=== PATIENT | female | born 1940 | race Caucasian/White ===

== ENCOUNTER 2023-02-01 20:12 | Inpatient (IN) | payer MEDICARE, MEDICAID, SELFPAY ==
--- NOTE | ~2023-02-01 | XR_ITS ---
EXAMINATION: XR CHEST CLINICAL INFORMATION: Shortness of breath COMPARISON: None available. TECHNIQUE: Frontal view of the chest was obtained. FINDINGS: The cardiac silhouette does not appear enlarged. The thoracic aorta is calcified. There is fullness of the right pulmonary hilum. There is subsegmental atelectasis at the lung bases. The lungs are otherwise clear. No pleural effusion or pneumothorax. Degenerative changes of the spine and shoulders. XR/XR chest 1V IMPRESSION: Subsegmental atelectasis at the lung bases. Prominent right pulmonary hilum.
--- NOTE | 2023-02-01 20:22 | ECG_ITS ---
Test Reason : CHEST PAIN Blood Pressure : / mmHG Vent. Rate : 086 BPM Atrial Rate : 088 BPM P-R Int : 000 ms QRS Dur : 090 ms QT Int : 404 ms P-R-T Axes : 000 -17 087 degrees QTc Int : 483 ms Undetermined rhythm Anteroseptal infarct , age undetermined Abnormal ECG When compared with ECG of 11-JUL-2003 08:08, Current undetermined rhythm precludes rhythm comparison, needs review Anteroseptal infarct is now Present Referred By: Xiomara Mina Electronically Signed By:JAMIE RICHARDSON MD
[2023-02-01 20:24] VITALS: BP 130/94; PULSE 81; PULSE 82; RESP 18; TEMP 36.8; O2SAT 95; O2SAT 97; BMI 32.2
[2023-02-01 21:00] LABS: VBG Base Excess 6.1 mmol/L; VBG HCO3 31 mmol/L (22-26); VBG pCO2 47 mmHg; VBG pH 7.42 (7.32-7.43); VBG pO2 43 mmHg
[2023-02-01 21:03] LABS: Basophils Absolute Auto 0.1 X10*3/uL (0.0-0.2); Basophils Percent Auto 0.9 % (0-2); Eosinophils Absolute Auto 0.2 X10*3/uL (0.0-0.4); Eosinophils Percent Auto 1.9 % (0-4); Hematocrit 33.6 % (37.0-47.0); Hemoglobin 11.2 g/dl (12.0-16.0); Imm Gran Abs Auto 0.06 X10*3/uL (0.00-0.03); Imm Gran Pct Auto 0.5 % (0.0-0.4); Lymphocytes Absolute Auto 2.8 X10*3/uL (1.2-4.9); Lymphocytes Percent Auto 21.8 % (20-40); MANUAL DIFF FLAG SCAN; Mean Corpuscular HGB Conc 33.3 g/dl (31.0-35.0); Mean Corpuscular Hemoglobin 29.2 pg (27.0-33.0); Mean Corpuscular Volume 87.5 fL (80.0-98.0); Mean Platelet Volume 10.2 fL (9.4-12.3); Monocytes Absolute Auto 1.6 X10*3/uL (0.1-1.2); Monocytes Percent Auto 12.1 % (2-11); Neutrophils Absolute Auto 8.1 x10*3/uL (2.0-8.3); Neutrophils Percent Auto 62.8 % (45-73); Platelet Count 264 X10*3/uL (160-400); Red Blood Count 3.84 X10*6/uL (4.20-5.50); Red Cell Distribution Width 12.4 % (11.0-16.0); SCAN SMEAR FLAG 1; White Blood Count 12.8 X10*3/uL (4.8-10.8)
[2023-02-01 21:04] LABS: INTERNATIONAL NORM RATIO 1.6 (0.9-1.1); Prothrombin Time 18.1 SEC (10.0-13.1)
[2023-02-01 21:06] LABS: Venous Blood Gas Refer to POC result
[2023-02-01 21:10] LABS: Alanine Aminotransferase 12 U/L (0-31); Albumin Level 3.8 g/dL (3.5-5.0); Alkaline Phosphatase 97 U/L (39-117); Anion Gap 13 (12-20); Aspartate Amino Transferase 15 U/L (5-31); Bilirubin Total 0.6 mg/dL (0.0-1.0); Blood Urea Nitrogen 6 mg/dL (9-16); Calcium 9.1 mg/dL (8.4-10.2); Carbon Dioxide 25 mmol/L (22-29); Chloride 98 mmol/L (96-108); Creatinine Clr Calc Pharmacy 55.6; Estimated Glomerular Filt Rate > 60; Glucose Random 120 mg/dL (60-115); Potassium 3.8 mmol/L (3.3-5.1); Sodium 132 mmol/L (135-145); Total Protein 7.4 g/dL (6.5-8.0)
[2023-02-01 21:14] LABS: B Type Natriuretic Peptide 224 pg/mL (<100)
[2023-02-01 21:41] LABS: SLIDE REVIEW VERIFIED
--- NOTE | 2023-02-01 21:44 | ED_ITS ---
HPI - SOB/Dyspnea General Chief Complaint: Upper Respiratory Symptoms Stated Complaint: sob, wheezing, per ems Time Seen by Provider: 02/01/23 20:21 Source: patient and EMS Mode of arrival: EMS History of Present Illness HPI Narrative: 82-year-old female who presents with increasing shortness of breath and wheezing for 2 days, denies use diuretics and denies any fever, chills, nausea, vomiting, but does report new cough. She otherwise denies GI or symptoms. Related Data Home Medications Medication Instructions Recorded Confirmed Lactobacillus acidophilus 1 tab PO BID 02/01/23 02/01/23 (Acidophilus chewable tablet) apixaban 5 mg tablet (Eliquis) 5 mg PO BID 02/01/23 02/01/23 atorvastatin 10 mg tablet 10 mg PO DAILY 02/01/23 02/01/23 cholecalciferol (vitamin D3) 50 50 mcg PO DAILY 02/01/23 02/01/23 mcg (2,000 unit) tablet diltiazem HCl 240 mg 240 mg PO DAILY 02/01/23 02/01/23 tablet,extended release 24 hr docusate sodium 100 mg tablet 100 mg PO BEDTIME 02/01/23 02/01/23 guaifenesin 100 mg/5 mL oral liquid 100 mg PO Q4H PRN Cough 02/01/23 02/01/23 ipratropium 0.5 mg-albuterol 3 mg 3 ml inhalation Q4-6H PRN Wheezing 02/01/23 02/01/23 (2.5 mg base)/3 mL nebulization soln levothyroxine 100 mcg tablet 100 mcg PO DAILY@0600 02/01/23 02/01/23 lidocaine HCl 4 % topical cream 1 appl topical DAILY 02/01/23 02/01/23 (Aspercreme (lidocaine HCl)) meclizine 12.5 mg tablet 12.5 mg PO TID PRN Dizziness 02/01/23 02/01/23 multivitamin 1 tab PO DAILY 02/01/23 02/01/23 potassium chloride 10 mEq 10 meq PO BID 02/01/23 02/01/23 tablet,extended release Allergies Allergy/AdvReac Type Severity Reaction Status Date / Time Unable to Assess Allergy Verified 02/01/23 20:21 Review of Systems Review of Systems: Pertinent positives and negatives as stated in HPI PMFSH Past Medical History Source: nursing notes reviewed Social History Social History Alcohol intake: never Smoked in Last 30 Days: No Use of substances other than those prescribed or required for medical reasons: No Advance Directives: No Advance Directives Information Provided: No Physical Exam Vital Signs: Vital Signs: Last Vital Signs Temp 98.7 F 02/01/23 22:16 Pulse 88 02/01/23 22:16 Resp 16 02/01/23 22:16 BP 169/97 H 02/01/23 22:16 Pulse Ox 95 02/01/23 22:16 O2 Del Method Room Air 02/01/23 22:16 BMI result Body Mass Index 32.2 VITAL SIGNS: Reviewed. GENERAL: Well developed, well nourished, in no acute distress. HEAD: Normocephalic/atraumatic EYES: PERRLA, EOMI EARS: Ext canals without abnormality NOSE: Nares patent bilateral OROPHARYNX: no oral lesions noted, posterior pharynx clear NECK: Supple, no adenopathy LUNGS: Bibasilar rales noted with tachypnea and mild expiratory wheeze primarily on the right. SpO2<95> CARDIOVASCULAR: Regular rate and rhythm without noted murmurs, no JVD but bilateral 1+ pitting edema noted to the anterior tibias ABDOMEN: Soft, non-tender, non-distended with bowel sounds. MUSCULOSKELETAL: No tenderness, deformities, or effusions noted on gross inspection. EXTREMITIES: No cyanosis, clubbing or edema. SKIN: Inspection of the skin reveals no rashes NEUROLOGIC: Alert and oriented x 4. Strength and sensation to light touch were grossly intact x 4. Medications Administered Discontinued Medications Generic Name Dose Route Start Last Admin Trade Name Freq PRN Reason Stop Dose Admin Furosemide 60 mg 02/01/23 21:39 02/01/23 21:57 Furosemide 100 Mg/10 Ml Vial IVPUSH 02/01/23 21:40 60 mg ONCE ONE Administration Protocol Medical Decision Making Medical Decision Making MDM Narrative: 2020: 82-year-old female with history and clinical presentation, DDX: Viral illness, CHF, less likely felt to be pneumonia and no evidence to suggest chronic lung disease or UTI. I reviewed all investigations and hematologic indices which demonstrated a leukocytosis without left shift, normocytic anemia likely of chronic disease as there are no reports of acute bleeding, patient is afebrile and chest x-ray does not demonstrate an infiltrate. INR-1.6 consistent with chronic anticoagulation due to underlying atrial fibrillation which is noted to be rate controlled at this time. VBG demonstrates a pH within normal limits and pCO2 of 47. Chemistry indices show a mild hyponatremia which is likely secondary to CHF exacerbation (she received 60 mg of Lasix) based off of clinical exam and this appears to be new and is not related to renal function which appears to be intact, troponin is less than 2.7 and there are no acute findings on the EKG other than baseline chronic atrial fibrillation. Urinalysis demonstrates n itrite and leukocyte esterase positive results with the presence of blood, wbc's as well as 4+ bacteria. Patient will receive antibiotics after lactic acid and blood cultures are collected. She remains hemodynamically stable and does not meet criteria for sepsis fluids at this time. 2233: I discussed case with inpatient hospitalist who accepts admission. Differential Diagnosis Differential Diagnoses: The differential diagnosis associated with the presentation includes Please see the discussion above Admission/Observation Consideration of admission/observation: Escalation of care including admission/observation considered Please see the discussion above Consult Healthcare Provider Management of the patient was discussed with: Hospitalist Please see the discussion above Lab Data MDM Lab Attestation statement: I reviewed the patient's lab results. Please see the discussion above 02/01/23 20:44 02/01/23 20:44 Labs: Lab Results 02/01/23 02/01/23 02/01/23 Range/Units 20:44 20:44 20:44 WBC 12.8 H (4.8-10.8) X10*3/uL RBC 3.84 L (4.20-5.50) X10*6/uL Hgb 11.2 L (12.0-16.0) g/dl Hct 33.6 L (37.0-47.0) % MCV 87.5 (80.0-98.0) fL MCH 29.2 (27.0-33.0) pg MCHC 33.3 (31.0-35.0) g/dl RDW 12.4 (11.0-16.0) % Plt Count 264 (160-400) X10*3/uL MPV 10.2 (9.4-12.3) fL Immature Gran % (Auto) 0.5 H (0.0-0.4) % Neut % (Auto) 62.8 (45-73) % Lymph % (Auto) 21.8 (20-40) % [place] % (Auto) 12.1 H (2-11) % Eos % (Auto) 1.9 (0-4) % Baso % (Auto) 0.9 (0-2) % Lymph # (Auto) 2.8 (1.2-4.9) X10*3/uL [place] # (Auto) 1.6 H (0.1-1.2) X10*3/uL Eos # (Auto) 0.2 (0.0-0.4) X10*3/uL Baso # (Auto) 0.1 (0.0-0.2) X10*3/uL Abs Immat Gran (auto) 0.06 H (0.00-0.03) X10*3/uL Absolute Neuts (auto) 8.1 (2.0-8.3) x10*3/uL Absolute Nucleated RBC 0.000 (0.0-0.012) X10*3/uL Nucleated RBC % (auto) 0.0 (0.0-0.2) /100WBC Smear Tech's Comments VERIFIED PT 18.1 H (10.0-13.1) SEC INR 1.6 H (0.9-1.1) VBG pH (7.32-7.43) VBG pCO2 mmHg VBG pO2 mmHg VBG HCO3 (22-26) mmol/L VBG O2 Saturation % VBG Base Excess mmol/L Sodium (135-145) mmol/L Potassium (3.3-5.1) mmol/L Chloride (96-108) mmol/L Carbon Dioxide (22-29) mmol/L Anion Gap (12-20) BUN (9-16) mg/dL Creatinine (0.5-1.4) mg/dL Estim Creat Clear Calc Estimated GFR Random Glucose (60-115) mg/dL Calcium (8.4-10.2) mg/dL Total Bilirubin (0.0-1.0) mg/dL AST (5-31) U/L ALT (0-31) U/L Alkaline Phosphatase (39-117) U/L Troponin I High Sens (<3.5-17.0) ng/L B-Natriuretic Peptide 224 H (<100) pg/mL Total Protein (6.5-8.0) g/dL Albumin (3.5-5.0) g/dL Urine Color Urine Appearance Urine pH (5.0-9.0) Ur Specific [place] (1.005-1.025) Urine Protein (Neg-Trace) mg/dL Urine Glucose (UA) (Negative) mg/dL Urine Ketones (Negative) mg/dL Urine Blood (Negative) Urine Nitrite (Negative) Ur Leukocyte Esterase (Negative) Urine RBC (0-2) /HPF Urine WBC (0-5) /HPF Ur Squamous Epith Cells (0-2) /HPF Urine Bacteria (None Seen) Hyaline Casts (0-2) /LPF Influenza Type A (PCR) (Negative) Influenza Type B (PCR) (Negative) RSV RNA Qual (PCR) (Negative) SARS-CoV-2 RNA (RT-PCR) (Negative) 02/01/23 02/01/23 02/01/23 Range/Units 20:44 20:51 21:13 WBC (4.8-10.8) X10*3/uL RBC (4.20-5.50) X10*6/uL Hgb (12.0-16.0) g/dl Hct (37.0-47.0) % MCV (80.0-98.0) fL MCH (27.0-33.0) pg MCHC (31.0-35.0) g/dl RDW (11.0-16.0) % Plt Count (160-400) X10*3/uL MPV (9.4-12.3) fL Immature Gran % (Auto) (0.0-0.4) % Neut % (Auto) (45-73) % Lymph % (Auto) (20-40) % [place] % (Auto) (2-11) % Eos % (Auto) (0-4) % Baso % (Auto) (0-2) % Lymph # (Auto) (1.2-4.9) X10*3/uL [place] # (Auto) (0.1-1.2) X10*3/uL Eos # (Auto) (0.0-0.4) X10*3/uL Baso # (Auto) (0.0-0.2) X10*3/uL Abs Immat Gran (auto) (0.00-0.03) X10*3/uL Absolute Neuts (auto) (2.0-8.3) x10*3/uL Absolute Nucleated RBC (0.0-0.012) X10*3/uL Nucleated RBC % (auto) (0.0-0.2) /100WBC Smear Tech's Comments PT (10.0-13.1) SEC INR (0.9-1.1) VBG pH 7.42 (7.32-7.43) VBG pCO2 47 mmHg VBG pO2 43 mmHg VBG HCO3 31 H (22-26) mmol/L VBG O2 Saturation 72.0 % VBG Base Excess 6.1 mmol/L Sodium 132 L (135-145) mmol/L Potassium 3.8 (3.3-5.1) mmol/L Chloride 98 (96-108) mmol/L Carbon Dioxide 25 (22-29) mmol/L Anion Gap 13 (12-20) BUN 6 L (9-16) mg/dL Creatinine 0.68 (0.5-1.4) mg/dL Estim Creat Clear Calc 55.6 Estimated GFR > 60 Random Glucose 120 H (60-115) mg/dL Calcium 9.1 (8.4-10.2) mg/dL Total Bilirubin 0.6 (0.0-1.0) mg/dL AST 15 (5-31) U/L ALT 12 (0-31) U/L Alkaline Phosphatase 97 (39-117) U/L Troponin I High Sens (<3.5-17.0) ng/L B-Natriuretic Peptide (<100) pg/mL Total Protein 7.4 (6.5-8.0) g/dL Albumin 3.8 (3.5-5.0) g/dL Urine Color Urine Appearance Urine pH (5.0-9.0) Ur Specific [place] (1.005-1.025) Urine Protein (Neg-Trace) mg/dL Urine Glucose (UA) (Negative) mg/dL Urine Ketones (Negative) mg/dL Urine Blood (Negative) Urine Nitrite (Negative) Ur Leukocyte Esterase (Negative) Urine RBC (0-2) /HPF Urine WBC (0-5) /HPF Ur Squamous Epith Cells (0-2) /HPF Urine Bacteria (None Seen) Hyaline Casts (0-2) /LPF Influenza Type A (PCR) NEGATIVE (Negative) Influenza Type B (PCR) NEGATIVE (Negative) RSV RNA Qual (PCR) NEGATIVE (Negative) SARS-CoV-2 RNA (RT-PCR) NEGATIVE (Negative) 02/01/23 02/01/23 Range/Units 21:22 22:12 WBC (4.8-10.8) X10*3/uL RBC (4.20-5.50) X10*6/uL Hgb (12.0-16.0) g/dl Hct (37.0-47.0) % MCV (80.0-98.0) fL MCH (27.0-33.0) pg MCHC (31.0-35.0) g/dl RDW (11.0-16.0) % Plt Count (160-400) X10*3/uL MPV (9.4-12.3) fL Immature Gran % (Auto) (0.0-0.4) % Neut % (Auto) (45-73) % Lymph % (Auto) (20-40) % [place] % (Auto) (2-11) % Eos % (Auto) (0-4) % Baso % (Auto) (0-2) % Lymph # (Auto) (1.2-4.9) X10*3/uL [place] # (Auto) (0.1-1.2) X10*3/uL Eos # (Auto) (0.0-0.4) X10*3/uL Baso # (Auto) (0.0-0.2) X10*3/uL Abs Immat Gran (auto) (0.00-0.03) X10*3/uL Absolute Neuts (auto) (2.0-8.3) x10*3/uL Absolute Nucleated RBC (0.0-0.012) X10*3/uL Nucleated RBC % (auto) (0.0-0.2) /100WBC Smear Tech's Comments PT (10.0-13.1) SEC INR (0.9-1.1) VBG pH (7.32-7.43) VBG pCO2 mmHg VBG pO2 mmHg VBG HCO3 (22-26) mmol/L VBG O2 Saturation % VBG Base Excess mmol/L Sodium (135-145) mmol/L Potassium (3.3-5.1) mmol/L Chloride (96-108) mmol/L Carbon Dioxide (22-29) mmol/L Anion Gap (12-20) BUN (9-16) mg/dL Creatinine (0.5-1.4) mg/dL Estim Creat Clear Calc Estimated GFR Random Glucose (60-115) mg/dL Calcium (8.4-10.2) mg/dL Total Bilirubin (0.0-1.0) mg/dL AST (5-31) U/L ALT (0-31) U/L Alkaline Phosphatase (39-117) U/L Troponin I High Sens < 2.7 (<3.5-17.0) ng/L B-Natriuretic Peptide (<100) pg/mL Total Protein (6.5-8.0) g/dL Albumin (3.5-5.0) g/dL Urine Color Yellow Urine Appearance Cloudy Urine pH 6.0 (5.0-9.0) Ur Specific [place] 1.015 (1.005-1.025) Urine Protein Trace (Neg-Trace) mg/dL Urine Glucose (UA) Negative (Negative) mg/dL Urine Ketones Negative (Negative) mg/dL Urine Blood Trace H (Negative) Urine Nitrite Positive H (Negative) Ur Leukocyte Esterase Large (3+) H (Negative) Urine RBC 3-5 H (0-2) /HPF Urine WBC >50 H (0-5) /HPF Ur Squamous Epith Cells 0-2 (0-2) /HPF Urine Bacteria 4+ (None Seen) Hyaline Casts 0-2 (0-2) /LPF Influenza Type A (PCR) (Negative) Influenza Type B (PCR) (Negative) RSV RNA Qual (PCR) (Negative) SARS-CoV-2 RNA (RT-PCR) (Negative) Independent Interpretation I performed an independent interpretation of an: EKG Interpretation: Atrial fibrillation, HR-86, no STEMI, QRS/QTC are within normal limits. Radiology Impression Radiologist Impression: No infiltrate, otherwise my interpretation is in agreement with radiology's impression. External Record Review External record reviewed: Outpatient record Chronic Conditions Patient?s care impacted by: Other Atrial fibrillation, chronic anticoagulation. Critical Care Time Critical Care Time Critical Care Time: Yes Total Critical Care Time: 30 Attestation: I personally attest to this time spent taking care of the patient. Discharge Plan Discharge Clinical Impression: Dyspnea, CHF exacerbation, Cystitis Patient Disposition: Admitted As Inpatient
[2023-02-01 21:55] LABS: Troponin-I High Sensitivity < 2.7 ng/L (<3.5-17.0)
[2023-02-01] MEDS: Furosemide 100 MG/10 ML VIAL 60 MG IVPUSH (21:57)
[2023-02-01 22:11] LABS: Influenza A PCR NEGATIVE (Negative); Influenza B PCR NEGATIVE (Negative); Resp Syncy Virus RNA Qual PCR NEGATIVE (Negative); SARS COV2 PCR INHOUSE NEGATIVE (Negative)
[2023-02-01 22:16] VITALS: BP 169/97; PULSE 88; RESP 16; TEMP 37.1; O2SAT 95
[2023-02-01 22:27] LABS: Appearance Urine Cloudy; Color Urine Yellow; Glucose Urine UA Negative (Negative); Leukocyte Esterase Urine Large (3+) (Negative); Nitrite Urine Positive (Negative); Specific Gravity - Urine 1.015 (1.005-1.025); UMIC TRIGGER UACC YES; Urine Blood Trace (Negative); Urine Ketones Negative (Negative); Urine Protein Trace mg/dL (Neg-Trace)
[2023-02-01 22:29] LABS: Bacteria Urine 4+ (None Seen); Hyaline Casts Urine 0-2 /LPF (0-2); Squamous Epithelial Cell Urine 0-2 /HPF (0-2); UACC Culture Trigger YES; WBC Urine >50 /HPF (0-5)
--- NOTE | 2023-02-01 22:42 | PHA.MEDREC ---
Pharmacy Consult ? Medication Reconciliation Pharmacy has completed the medication reconciliation. Patient came in with medication list from facility. Michelle Muller, ThadD
[2023-02-01] MEDS: cefTRIAXone sodium 1 GM in 0.9 % Sodium Chloride 50 ML IV (23:16)
[2023-02-01 23:22] LABS: Lactic Acid 1.4 mmol/L (0.5-2.0)
--- NOTE | 2023-02-01 23:59 | PM.IMHP ---
History of Present Illness Date of Service: 02/01/23 Chief Complaint: dyspnea This is an 82-year-old female past medical history of hypertension, hyperlipidemia, hypothyroidism, AFib, asthma, aortic valve stenosis, frequent falls, UTI, syncope, comes into the hospital after reported dyspnea at long-term. Patient is alert and oriented to self, but a poor historian. According to the notes sent from long-term patient has been complaining of shortness of breath, there is several patient at the facility with upper respiratory infections, there was concern the patient may have RSV, sent in for further evaluation. Patient herself denies any shortness of breath, no chest pain, no palpitations, no orthopnea PND, she does report lower extremity edema, but unable to tell me time frame. Denies any abdominal pain nausea or vomiting, no diarrhea constipation, has urinary incontinence, no lower extremity edema On arrival to the ED patient hemodynamically stable no significant abnormal vitals Labs are significant for WBC count of 12.8, hemoglobin 12 11.2, INR 1.6, pH of 7.42, sodium of 132, BNP of 224, troponin negative, UA positive for nitrites, leukocyte Estrace, WBC, Chest x-ray shows atelectasis and prominent right pulmonary him Patient with no hypoxia Patient started on Lasix and will be admitted for further management Review of Systems Review of Systems: Yes all other systems are reviewed and are negative and Unobtainable due to mental status [facility] Medical History Afib History of aortic valve stenosis History of asthma History of syncope History of UTI Hyperlipidemia Hypertension Hypothyroidism Pertinent family history: Unable to obtain Surgical History No pertinent past surgical history Social History Alcohol intake: never Patient Tobacco Use Status: Never used Tobacco Smoked in Last 30 Days: No Use of substances other than those prescribed or required for medical reasons: No Advance Directives: No Advance Directives Information Provided: No Nutrition Risks: No Nutritional Risk Meds Allergies Allergy/AdvReac Type Severity Reaction Status Date / Time Unable to Assess Allergy Verified 02/01/23 20:21 Active Medications: Current Medications Pharmacy Consult (Consult Rx Perform Med Rec) 1 each MISCELLANE ONCE PRN PRN Reason: Consult order Home Medications Medication Instructions Recorded Confirmed Last Taken Type Lactobacillus acidophilus 1 tab PO BID 02/01/23 02/01/23 02/01/23 History (Acidophilus chewable tablet) apixaban 5 mg tablet (Eliquis) 5 mg PO BID 02/01/23 02/01/23 02/01/23 History atorvastatin 10 mg tablet 10 mg PO DAILY 02/01/23 02/01/23 02/01/23 History cholecalciferol (vitamin D3) 50 50 mcg PO DAILY 02/01/23 02/01/23 02/01/23 History mcg (2,000 unit) tablet diltiazem HCl 240 mg 240 mg PO DAILY 02/01/23 02/01/23 02/01/23 History tablet,extended release 24 hr docusate sodium 100 mg tablet 100 mg PO BEDTIME 02/01/23 02/01/23 02/01/23 History guaifenesin 100 mg/5 mL oral liquid 100 mg PO Q4H PRN Cough 02/01/23 02/01/23 02/01/23 History ipratropium 0.5 mg-albuterol 3 mg 3 ml inhalation Q4-6H PRN Wheezing 02/01/23 02/01/23 02/01/23 History (2.5 mg base)/3 mL nebulization soln levothyroxine 100 mcg tablet 100 mcg PO DAILY@0600 02/01/23 02/01/23 02/01/23 History lidocaine HCl 4 % topical cream 1 appl topical DAILY 02/01/23 02/01/23 02/01/23 History (Aspercreme (lidocaine HCl)) meclizine 12.5 mg tablet 12.5 mg PO TID PRN Dizziness 02/01/23 02/01/23 Unknown History multivitamin 1 tab PO DAILY 02/01/23 02/01/23 02/01/23 History potassium chloride 10 mEq 10 meq PO BID 02/01/23 02/01/23 02/01/23 History tablet,extended release Physical Exam Vital Signs and Narrative: Vital Signs: Last Vital Signs Temp 98.7 F 02/01/23 22:16 Pulse 88 02/01/23 22:16 Resp 16 02/01/23 22:16 BP 169/97 H 02/01/23 22:16 Pulse Ox 95 02/01/23 22:16 O2 Del Method Room Air 02/01/23 22:16 BMI result Body Mass Index 32.2 Const: General: cooperative and no acute distress Eyes: General: appearance normal, both eyes and all related structures Resp: Effort & Inspection: normal respiratory effort Auscultation: clear to auscultation bilaterally Cardio: Rate: regular rate Rhythm: regular rhythm GI: Palpation (GI): Soft to palpation Auscultation: normal bowel sounds Skin: General skin exam: no rashes or lesions noted Neuro: Cognition (Neuro): normal cognition Extrem: Other: Trace lower extremity edema General: Yes normal to inspection Results Labs 02/01/23 20:44 02/01/23 20:44 Labs: Laboratory Results - last 24 hr 02/01/23 02/01/23 02/01/23 20:44 20:44 20:44 MCV 87.5 MCH 29.2 MCHC 33.3 RDW 12.4 Plt Count 264 MPV 10.2 Immature Gran % (Auto) 0.5 H Neut % (Auto) 62.8 Lymph % (Auto) 21.8 [place] % (Auto) 12.1 H Eos % (Auto) 1.9 Baso % (Auto) 0.9 Lymph # (Auto) 2.8 [place] # (Auto) 1.6 H Eos # (Auto) 0.2 Baso # (Auto) 0.1 Abs Immat Gran (auto) 0.06 H Absolute Neuts (auto) 8.1 Absolute Nucleated RBC 0.000 Nucleated RBC % (auto) 0.0 Smear Tech's Comments VERIFIED PT 18.1 H INR 1.6 H VBG pH VBG pCO2 VBG pO2 VBG HCO3 VBG O2 Saturation VBG Base Excess Anion Gap Estim Creat Clear Calc Estimated GFR Random Glucose Lactic Acid Calcium Total Bilirubin AST ALT Alkaline Phosphatase B-Natriuretic Peptide 224 H Total Protein Albumin Urine Color Urine Appearance Urine pH Ur Specific [place] Urine Protein Urine Glucose (UA) Urine Ketones Urine Blood Urine Nitrite Ur Leukocyte Esterase Urine RBC Urine WBC Ur Squamous Epith Cells Urine Bacteria Hyaline Casts Influenza Type A (PCR) Influenza Type B (PCR) RSV RNA Qual (PCR) SARS-CoV-2 RNA (RT-PCR) 02/01/23 02/01/23 02/01/23 20:44 20:51 21:13 MCV MCH MCHC RDW Plt Count MPV Immature Gran % (Auto) Neut % (Auto) Lymph % (Auto) [place] % (Auto) Eos % (Auto) Baso % (Auto) Lymph # (Auto) [place] # (Auto) Eos # (Auto) Baso # (Auto) Abs Immat Gran (auto) Absolute Neuts (auto) Absolute Nucleated RBC Nucleated RBC % (auto) Smear Tech's Comments PT INR VBG pH 7.42 VBG pCO2 47 VBG pO2 43 VBG HCO3 31 H VBG O2 Saturation 72.0 VBG Base Excess 6.1 Anion Gap 13 Estim Creat Clear Calc 55.6 Estimated GFR > 60 Random Glucose 120 H Lactic Acid Calcium 9.1 Total Bilirubin 0.6 AST 15 ALT 12 Alkaline Phosphatase 97 B-Natriuretic Peptide Total Protein 7.4 Albumin 3.8 Urine Color Urine Appearance Urine pH Ur Specific [place] Urine Protein Urine Glucose (UA) Urine Ketones Urine Blood Urine Nitrite Ur Leukocyte Esterase Urine RBC Urine WBC Ur Squamous Epith Cells Urine Bacteria Hyaline Casts Influenza Type A (PCR) NEGATIVE Influenza Type B (PCR) NEGATIVE RSV RNA Qual (PCR) NEGATIVE SARS-CoV-2 RNA (RT-PCR) NEGATIVE 02/01/23 02/01/23 22:12 22:58 MCV MCH MCHC RDW Plt Count MPV Immature Gran % (Auto) Neut % (Auto) Lymph % (Auto) [place] % (Auto) Eos % (Auto) Baso % (Auto) Lymph # (Auto) [place] # (Auto) Eos # (Auto) Baso # (Auto) Abs Immat Gran (auto) Absolute Neuts (auto) Absolute Nucleated RBC Nucleated RBC % (auto) Smear Tech's Comments PT INR VBG pH VBG pCO2 VBG pO2 VBG HCO3 VBG O2 Saturation VBG Base Excess Anion Gap Estim Creat Clear Calc Estimated GFR Random Glucose Lactic Acid 1.4 Calcium Total Bilirubin AST ALT Alkaline Phosphatase B-Natriuretic Peptide Total Protein Albumin Urine Color Yellow Urine Appearance Cloudy Urine pH 6.0 Ur Specific [place] 1.015 Urine Protein Trace Urine Glucose (UA) Negative Urine Ketones Negative Urine Blood Trace H Urine Nitrite Positive H Ur Leukocyte Esterase Large (3+) H Urine RBC 3-5 H Urine WBC >50 H Ur Squamous Epith Cells 0-2 Urine Bacteria 4+ Hyaline Casts 0-2 Influenza Type A (PCR) Influenza Type B (PCR) RSV RNA Qual (PCR) SARS-CoV-2 RNA (RT-PCR) Imaging Radiologist's Impressions: Impressions Chest X-Ray 02/01/23 20:57 IMPRESSION: Subsegmental atelectasis at the lung bases. Prominent right pulmonary hilum. Assessment and Plan (1) Dyspnea: Status: Acute (2) CHF exacerbation: Status: Acute (3) Cystitis: Status: Acute Plan This is an 82-year-old female comes into the hospital with reported dyspnea, no hypoxia noted to have several issues as below # dyspnea - likely secondary to acute CHF exacerbation, although mild - has mild trace edema, no orthopnea or PND, - influenza, RSV, as well as COVID negative - afebrile, no evidence of pneumonia on x-ray - at this time will treat CHF with Lasix below # acute CHF exacerbation - no documented history of CHF - has increased BNP, and image findings of increase pulmonary edema - will treat with Lasix, consult Cardiology, echocardiogram, strict I&O, low-sodium diet, daily weight - monitor respiratory status # acute cystitis - will treat with IV antibiotics - follow cultures # AFib - unclear chronicity - continue home anticoagulation, and rate control # hypertension - stable - continue diltiazem # hypothyroidism - continue levothyroxine # hyperlipidemia - continue statin DVT prophylaxis: Eliquis Given patient's need further management of CHF as well as acute cystitis patient require minimum 2 nights inpatient hospital stay for further management and monitoring Time Spent With Patient Time: Total time managing care of this patient today ____ minutes. Quality Stroke Does the patient have a stroke diagnosis?: No VTE Prior VTE?: No VTE Risk Level:: Medical - low VTE Device Contraindication: Treatment Not Indicated VTE Drug Contraindication: N/A - Med Ordered
[2023-02-02] MEDS: 0.9 % Sodium Chloride Flush 3 ML SYRINGE IVFLUSH ×2 (00:56→14:06)
[2023-02-02 03:34] VITALS: BP 148/91; PULSE 91; RESP 22; TEMP 36.6; O2SAT 95
--- NOTE | 2023-02-02 06:27 | MHC.EDTECH ---
Patient incontinent, requested to sit on commode. T/w got Pt on to commode where she urinated and assisted back to bed with help of RN. [facility] gown put on patient and repositioned with new purewick placed. Suction canister emptied, 950 ml of urine. Call negrete within reach.
--- NOTE | 2023-02-02 07:00 | CA_ITS ---
Transthoracic Echocardiogram Patient (Last, First, Middle): Sue Jhaveri, Gender: Female Date of : 1940 Age: 82 Procedure Date: 02/02/2023 Procedure Type: Transthoracic Echocardiogram Location: [facility] Height: 152.4 cm Weight: 74.39 kg BSA: 1.72 m2 Heart Rate: 89 bpm BP: 148 / 91 mmHg Atg Java Developer: SB Referring MD: Anjum Gomez MD Extractor Operator Solvent Process: Rodger Oliveira MD Symptoms: chf Study Quality: Adequate w contrast ECG Rhythm: Undetermined Conclusions: - 1. Low normal LV ejection fraction 50-55% 2. Mildly dilated left atrium 3. Severe aortic stenosis, paradoxical low-flow 4. Normal measured RV systolic pressure 5. No gross pericardial effusion Findings Procedure Information Contrast agent, definity, is being given per protocol without apparent complications. Left Ventricle Normal left ventricular cavity size. There is normal left ventricular wall thickness. The left ventricular systolic function is low normal. The visually estimated ejection fraction is between 50-55%. Diastolic function is indeterminate on the basis of available data. Spectral Doppler is indicative of a restrictive filling pattern. Right Ventricle The right ventricle was not well visualized. Atria The left atrium is mildly dilated. The right atrium is normal in size. Aortic Valve The aortic valve was not well visualized. There is moderate calcification of the aortic valve. There is severe aortic valve stenosis. The mean gradient is 32 mmHg. There is no aortic valve regurgitation. paradoxical low-flow severe aortic stenosis with dimensionless index of 0.18 Mitral Valve There is mild anterior and moderate posterior mitral leaflet thickening. There is moderate mitral annular calcification. There is trace mitral valve regurgitation. There is no mitral valve stenosis. Pulmonic Valve The pulmonic valve was not well visualized. Tricuspid Valve Likely normal tricuspid valve structure and function. There is mild tricuspid valve regurgitation. The right ventricular systolic pressure is normal. The right ventricular systolic pressure is 17 mmHg. Normal right atrial pressure. There is no evidence of pulmonary hypertension. Great Vessels The pulmonary artery was not well visualized. There is no dilatation of the ascending aorta. Venous The inferior vena cava is normal in size and collapses greater than 50% with inspiration. Pericardium/Pleural There is no evidence of pericardial effusion. Prior Study Comparison No prior study available for comparison. Measurements 2D Linear Measurements IVSd: 1.10 0.6-0.9/0.6-1.0 cm LVIDd: 3.70 3.9-5.3/4.2-5.9 cm LVIDd Index: 2.15 2.4-3.2/2.2-3.1 cm/m2 LVIDs: 2.90 2.0-3.6 cm LVPWd: 1.00 0.7-1.1 cm LA Diam: 3.80 2.7-3.8/3.0-4.0 cm LAIDs Index: 2.21 1.5-2.3 cm/m2 LV Mass: 150.24 67-162/88-224 g LV Mass Index: 87.35 43-95/49-115 g/m2 LVOT Diam: 1.80 3.0+(-)1.3 cm 2D Systolic Function EF 4C: 53.50 >55% EF 2C: 51.50 >55% EF BiP: 52.00 >55% Mitral Valve MV VTI: 0.20 MV Pk Lauri: 1.13 MV Mn Lauri: 0.77 MV Pk Grad: 5.00 MV Mn Grad: 3.00 MV Pk E: 1.09 MVA Continuity: 1.47 Aortic Valve AoV Pk Lauri: 3.46 AoV Mn Lauri: 2.65 AoV VTI: 0.61 AoV Pk Grad: 48.00 Aov Mn Grad: 32.00 MONAE Cont.VTI: 0.48 LVOT LVOT Pk Lauri: 0.67 LVOT Mn Lauri: 0.47 LVOT VTI: 0.12 LVOT Pk Grad: 2.00 LVOT Mn Grad: 1.00 LVOT Diam: 1.80 LVOT Area: 2.54 Diastolic Function MV Pk E: 1.09 Right Ventricle TAPSE (mm): 15.60 TVS' Lauri: 8.10 Tricuspid Valve TR Pk Lauri: 1.87 TR Pk Grad: 14.00 RA Press: 3.00 RVSP: 17.00 Great Vessels Aorta Sinus of Valsalva: 2.70 2.0-3.5 cm Ao Asc: 3.00 2.1-3.4 cm Pulmonary Valve PV Pk Lauri: 0.73 Peak PV Grad: 2.00 Updated in Other Vendor System with Status of Final Rodger Oliveira MD electronically signed on 02/02/2023 10:55:33 AM with status of Final
[2023-02-02] MEDS: Levothyroxine Sodium 100 MCG TABLET PO (07:53)
--- NOTE | 2023-02-02 07:59 | PC.NURSE ---
Verbal report to Ellis BRIDGES
[2023-02-02 08:00] VITALS: BP 168/87; PULSE 95; RESP 20; TEMP 36.3; O2SAT 96
[2023-02-02] MEDS: Cholecalciferol (Vitamin D3) 25 MCG TABLET 50 MCG PO (08:07)
[2023-02-02] MEDS: Atorvastatin Calcium 10 MG TABLET PO (08:07)
[2023-02-02] MEDS: Furosemide 40 MG/4 ML VIAL IVPUSH (08:08)
[2023-02-02] MEDS: Apixaban 5 MG TABLET PO ×2 (08:08→20:23)
[2023-02-02] MEDS: Potassium Chloride ER 10 MEQ TABLET.ER PO (08:08)
[2023-02-02] MEDS: Multivitamin TABLET 1 TAB PO (08:08)
--- NOTE | 2023-02-02 08:08 | MHC.EDTECH ---
Belongings list completed with patient and patient signed. Signed copy in chart.
[2023-02-02 08:40] LABS: Alanine Aminotransferase 11 U/L (0-31); Albumin Level 3.7 g/dL (3.5-5.0); Alkaline Phosphatase 100 U/L (39-117); Anion Gap 10 (12-20); Aspartate Amino Transferase 11 U/L (5-31); Bilirubin Total 0.8 mg/dL (0.0-1.0); Blood Urea Nitrogen 5 mg/dL (9-16); Carbon Dioxide 31 mmol/L (22-29); Chloride 97 mmol/L (96-108); Creatinine Clr Calc Pharmacy 57.2; Estimated Glomerular Filt Rate > 60; Glucose Random 104 mg/dL (60-115); Sodium 135 mmol/L (135-145)
[2023-02-02 08:57] VITALS: BMI 29.9
[2023-02-02 09:17] VITALS: BMI 30.2
--- NOTE | 2023-02-02 09:40 | MHC.CM.PN ---
Addendum entered by Elda Kay RN 02/02/23 09:59: IF PT RETURNS TO [place] NURSE [facility] WILL TRANSPORT. Original Note: IMM 02/02/23, EMR REVIEWED, PT ADMITTED W/UTI AND CHF EXAC, CM MET W/PT AND NURSE [facility] [phone], PT ABLE TO ANSWER MOST QUESTIONS AND [facility] DID PROVIDE INFO WELL. PT LIVES IN LTC AT [place], USES A [facility] FOR DME, PER [facility] THEY CANNOT ACCOMMODATE PHYSICAL THERAPY THEY ARE NOT ACCREDITED AND PT WOULD NEED STR, PER PT AND [facility] PREFERRED SNF IS [facility] AND THEN [facility] IN [place] 2ND CHOICE. PT VERIFIES COVID VACC X4, PCP IS EVA ABBOTT, HCP REJI POSEY AND COPY OF HCP/MOLST HAVE BEEN BROUGHT IN, COPY UPLOADED TO [facility] AND PLACED IN CHART.
--- NOTE | 2023-02-02 09:44 | P.CONCA_ITS ---
History of Present Illness History of Present Illness Date of Service: 02/02/23 Requesting physician: Anjum Gomez Consult reason: congestive heart failure Chief complaint: UTI, CHF Narrative: I was consulted to see sister Sue in cardiology consultation today for BNP findings consistent congestive heart failure. She is 82-year-old woman who lives at a [place] [facility] was referred here because she was having increasing cough and was suspicion for respiratory viral illness with RSV. She was referred here. She says she has had increased shortness of breath. The cough was also dry. There are no fever or chills. She was referred here was noted to have elevated BNP in the 200 range in findings consistent with possible CHF. She was also wheezing yesterday and as per the person that accompanies as she says is much improved with much less wheezing. She has diuresed about 900 cc as listed in the chart. She has prior history of aortic stenosis and has been told that she requires valve replacement but had declined. She does have some cognitive issues. She has not had significant leg swelling. She was noted to have cystitis by UA. Review of Systems Constitutional: Constitutional: Reports no additional constitutional c omplaints Cardiovascular: Cardiovascular: Denies chest pain, Denies leg edema, Denies lightheadedness, Denies Loss of Consciousness, Reports dyspnea and Reports dyspnea on exertion Respiratory: Respiratory: Reports cough, Reports dyspnea and Reports dyspnea on exertion Gastrointestinal: Gastrointestinal: Reports no additional gastrointestinal complaints Genitourinary: Genitourinary: Reports no additional female genitourinary complaints Neurologic: Reports system reviewed and no additional complaints, except as documented Endocrine: Endocrine: Reports no additional endocrine complaints [facility] Past Medical History Medical History Afib History of aortic valve stenosis History of asthma History of syncope History of UTI Hyperlipidemia Hypertension Hypothyroidism Surgical History Surgical History No pertinent past surgical history Social History Social History Housing: Retirement Alcohol intake: never Patient Tobacco Use Status: Never used Tobacco service: No Meds Allergies Allergy/AdvReac Type Severity Reaction Status Date / Time Unable to Assess Allergy Verified 02/01/23 20:21 Active Medications: Current Medications Acetaminophen (Acetaminophen 325 Mg Tablet) 650 mg PO Q6H PRN PRN Reason: Pain, Mild (Pain Scale 1-3) Albuterol/Ipratropium (Albuterol/Iprat 2.5/0.5mg 3 Ml Ampul.Neb) 3 ml INHALE RQ4H PRN PRN Reason: Wheezing Apixaban (Apixaban 5 Mg Tablet) 5 mg PO BID [facility] Last Admin: 02/02/23 08:08 Dose: 5 mg Atorvastatin Calcium (Atorvastatin Calcium 10 Mg Tablet) 10 mg PO DAILY [facility] Last Admin: 02/02/23 08:07 Dose: 10 mg Diltiazem HCl (Diltiazem Hcl Cd 240 Mg Cap.Er.Deg) 240 mg PO DAILY [facility]; Protocol Docusate Sodium (Docusate Sodium 100 Mg Capsule) 100 mg PO DAILY PRN PRN Reason: Constipation Docusate Sodium (Docusate Sodium 100 Mg Capsule) 100 mg PO BEDTIME MEENU Furosemide (Furosemide 40 Mg/4 Ml Vial) 40 mg IVPUSH DAILY [facility]; Protocol Last Admin: 02/02/23 08:08 Dose: 40 mg Guaifenesin (Guaifenesin 100 Mg/5 Ml Liquid) 5 ml PO Q4H PRN PRN Reason: Cough Ceftriaxone Sodium 1 gm/ (Sodium Chloride) 50 mls @ 100 mls/hr IV Q24H [facility] Levothyroxine Sodium (Levothyroxine Sodium 100 Mcg Tablet) 100 mcg PO DAILY@0600 [facility] Last Admin: 02/02/23 07:53 Dose: 100 mcg Lidocaine HCl (Lidocaine 4 % Cream Kit) 1 appl TOPICAL DAILY [facility] Meclizine HCl (Meclizine Hcl 12.5 Mg Tablet) 12.5 mg PO TID PRN PRN Reason: Dizziness Multivitamins/Vitamin C (Multivitamin Tablet) 1 tab PO DAILY [facility] Last Admin: 02/02/23 08:08 Dose: 1 tab Ondansetron HCl (Ondansetron Hcl 4 Mg/2 Ml Vial) 4 mg IVPUSH Q8H PRN PRN Reason: Nausea and Vomiting Pharmacy Consult (Consult Rx Perform Med Rec) 1 each MISCELLANE ONCE PRN PRN Reason: Consult order Potassium Chloride (Potassium Chloride Er 10 Meq Tablet.Er) 10 meq PO BID [facility] Last Admin: 02/02/23 08:08 Dose: 10 meq Sodium Chloride (0.9 % Sodium Chloride Flush 3 Ml Syringe) 3 ml IVFLUSH QSHIFT [facility] Last Admin: 02/02/23 08:08 Dose: Not Given Vitamin D (Cholecalciferol (Vitamin D3) 25 Mcg Tablet) 50 mcg PO DAILY [facility] Last Admin: 02/02/23 08:07 Dose: 50 mcg Home Medications Medication Instructions Recorded Confirmed Last Taken Type Lactobacillus acidophilus 1 tab PO BID 02/01/23 02/01/23 02/01/23 History (Acidophilus chewable tablet) apixaban 5 mg tablet (Eliquis) 5 mg PO BID 02/01/23 02/01/23 02/01/23 History atorvastatin 10 mg tablet 10 mg PO DAILY 02/01/23 02/01/23 02/01/23 History cholecalciferol (vitamin D3) 50 50 mcg PO DAILY 02/01/23 02/01/23 02/01/23 History mcg (2,000 unit) tablet diltiazem HCl 240 mg 240 mg PO DAILY 02/01/23 02/01/23 02/01/23 History tablet,extended release 24 hr docusate sodium 100 mg tablet 100 mg PO BEDTIME 02/01/23 02/01/23 02/01/23 History guaifenesin 100 mg/5 mL oral liquid 100 mg PO Q4H PRN Cough 02/01/23 02/01/23 02/01/23 History ipratropium 0.5 mg-albuterol 3 mg 3 ml inhalation Q4-6H PRN Wheezing 02/01/23 02/01/23 02/01/23 History (2.5 mg base)/3 mL nebulization soln levothyroxine 100 mcg tablet 100 mcg PO DAILY@0600 02/01/23 02/01/23 02/01/23 History lidocaine HCl 4 % topical cream 1 appl topical DAILY 02/01/23 02/01/23 02/01/23 History (Aspercreme (lidocaine HCl)) meclizine 12.5 mg tablet 12.5 mg PO TID PRN Dizziness 02/01/23 02/01/23 Unknown History multivitamin 1 tab PO DAILY 02/01/23 02/01/23 02/01/23 History potassium chloride 10 mEq 10 meq PO BID 02/01/23 02/01/23 02/01/23 History tablet,extended release Physical Exam Vital Signs: Vital Signs: Last Vital Signs Temp 97.4 F 02/02/23 08:00 Pulse 95 02/02/23 08:00 Resp 20 02/02/23 08:00 BP 168/87 H 02/02/23 08:00 Pulse Ox 96 02/02/23 08:00 O2 Del Method Room Air 02/02/23 08:00 BMI result Body Mass Index 30.2 Const: General: cooperative, comfortable, no acute distress, alert and awake Nutritional Appearance: overweight HEENT: Head: Yes normocephalic and Yes atraumatic Neck: Neck: Yes trachea midline, Yes supple and Yes no JVD Resp: Effort & Inspection: normal respiratory effort Auscultation: crackles bilateral at the base Cardio: Rhythm: regular rhythm Heart sounds: S1 normal heart sound present and Murmur heart sound present systolic late, decrescendo and crescendo GI: Auscultation: normal bowel sounds Skin: General skin exam: no rashes or lesions noted Neuro: General: no focal motor deficits Extrem: General: Yes no clubbing, cyanosis or edema Objective Labs and Meds 02/01/23 20:44 02/02/23 07:46 Lab results: Laboratory Results - last 24 hr 02/01/23 02/01/23 02/01/23 20:44 20:44 20:44 WBC 12.8 H RBC 3.84 L Hgb 11.2 L Hct 33.6 L MCV 87.5 MCH 29.2 MCHC 33.3 RDW 12.4 Plt Count 264 MPV 10.2 Immature Gran % (Auto) 0.5 H Neut % (Auto) 62.8 Lymph % (Auto) 21.8 [place] % (Auto) 12.1 H Eos % (Auto) 1.9 Baso % (Auto) 0.9 Lymph # (Auto) 2.8 [place] # (Auto) 1.6 H Eos # (Auto) 0.2 Baso # (Auto) 0.1 Abs Immat Gran (auto) 0.06 H Absolute Neuts (auto) 8.1 Absolute Nucleated RBC 0.000 Nucleated RBC % (auto) 0.0 Smear Tech's Comments VERIFIED PT 18.1 H INR 1.6 H VBG pH VBG pCO2 VBG pO2 VBG HCO3 VBG O2 Saturation VBG Base Excess Sodium Potassium Chloride Carbon Dioxide Anion Gap BUN Creatinine Estim Creat Clear Calc Estimated GFR Random Glucose Lactic Acid Calcium Total Bilirubin AST ALT Alkaline Phosphatase Troponin I High Sens B-Natriuretic Peptide 224 H Total Protein Albumin Urine Color Urine Appearance Urine pH Ur Specific [place] Urine Protein Urine Glucose (UA) Urine Ketones Urine Blood Urine Nitrite Ur Leukocyte Esterase Urine RBC Urine WBC Ur Squamous Epith Cells Urine Bacteria Hyaline Casts Influenza Type A (PCR) Influenza Type B (PCR) RSV RNA Qual (PCR) SARS-CoV-2 RNA (RT-PCR) 02/01/23 02/01/23 02/01/23 20:44 20:51 21:13 WBC RBC Hgb Hct MCV MCH MCHC RDW Plt Count MPV Immature Gran % (Auto) Neut % (Auto) Lymph % (Auto) [place] % (Auto) Eos % (Auto) Baso % (Auto) Lymph # (Auto) [place] # (Auto) Eos # (Auto) Baso # (Auto) Abs Immat Gran (auto) Absolute Neuts (auto) Absolute Nucleated RBC Nucleated RBC % (auto) Smear Tech's Comments PT INR VBG pH 7.42 VBG pCO2 47 VBG pO2 43 VBG HCO3 31 H VBG O2 Saturation 72.0 VBG Base Excess 6.1 Sodium 132 L Potassium 3.8 Chloride 98 Carbon Dioxide 25 Anion Gap 13 BUN 6 L Creatinine 0.68 Estim Creat Clear Calc 55.6 Estimated GFR > 60 Random Glucose 120 H Lactic Acid Calcium 9.1 Total Bilirubin 0.6 AST 15 ALT 12 Alkaline Phosphatase 97 Troponin I High Sens B-Natriuretic Peptide Total Protein 7.4 Albumin 3.8 Urine Color Urine Appearance Urine pH Ur Specific [place] Urine Protein Urine Glucose (UA) Urine Ketones Urine Blood Urine Nitrite Ur Leukocyte Esterase Urine RBC Urine WBC Ur Squamous Epith Cells Urine Bacteria Hyaline Casts Influenza Type A (PCR) NEGATIVE Influenza Type B (PCR) NEGATIVE RSV RNA Qual (PCR) NEGATIVE SARS-CoV-2 RNA (RT-PCR) NEGATIVE 02/01/23 02/01/23 02/01/23 21:22 22:12 22:58 WBC RBC Hgb Hct MCV MCH MCHC RDW Plt Count MPV Immature Gran % (Auto) Neut % (Auto) Lymph % (Auto) [place] % (Auto) Eos % (Auto) Baso % (Auto) Lymph # (Auto) [place] # (Auto) Eos # (Auto) Baso # (Auto) Abs Immat Gran (auto) Absolute Neuts (auto) Absolute Nucleated RBC Nucleated RBC % (auto) Smear Tech's Comments PT INR VBG pH VBG pCO2 VBG pO2 VBG HCO3 VBG O2 Saturation VBG Base Excess Sodium Potassium Chloride Carbon Dioxide Anion Gap BUN Creatinine Estim Creat Clear Calc Estimated GFR Random Glucose Lactic Acid 1.4 Calcium Total Bilirubin AST ALT Alkaline Phosphatase Troponin I High Sens < 2.7 B-Natriuretic Peptide Total Protein Albumin Urine Color Yellow Urine Appearance Cloudy Urine pH 6.0 Ur Specific [place] 1.015 Urine Protein Trace Urine Glucose (UA) Negative Urine Ketones Negative Urine Blood Trace H Urine Nitrite Positive H Ur Leukocyte Esterase Large (3+) H Urine RBC 3-5 H Urine WBC >50 H Ur Squamous Epith Cells 0-2 Urine Bacteria 4+ Hyaline Casts 0-2 Influenza Type A (PCR) Influenza Type B (PCR) RSV RNA Qual (PCR) SARS-CoV-2 RNA (RT-PCR) 02/02/23 07:46 WBC RBC Hgb Hct MCV MCH MCHC RDW Plt Count MPV Immature Gran % (Auto) Neut % (Auto) Lymph % (Auto) [place] % (Auto) Eos % (Auto) Baso % (Auto) Lymph # (Auto) [place] # (Auto) Eos # (Auto) Baso # (Auto) Abs Immat Gran (auto) Absolute Neuts (auto) Absolute Nucleated RBC Nucleated RBC % (auto) Smear Tech's Comments PT INR VBG pH VBG pCO2 VBG pO2 VBG HCO3 VBG O2 Saturation VBG Base Excess Sodium 135 Potassium 3.0 L D Chloride 97 Carbon Dioxide 31 H Anion Gap 10 L BUN 5 L Creatinine 0.66 Estim Creat Clear Calc 57.2 Estimated GFR > 60 Random Glucose 104 Lactic Acid Calcium 9.0 Total Bilirubin 0.8 AST 11 ALT 11 Alkaline Phosphatase 100 Troponin I High Sens B-Natriuretic Peptide Total Protein 7.0 Albumin 3.7 Urine Color Urine Appearance Urine pH Ur Specific [place] Urine Protein Urine Glucose (UA) Urine Ketones Urine Blood Urine Nitrite Ur Leukocyte Esterase Urine RBC Urine WBC Ur Squamous Epith Cells Urine Bacteria Hyaline Casts Influenza Type A (PCR) Influenza Type B (PCR) RSV RNA Qual (PCR) SARS-CoV-2 RNA (RT-PCR) Imaging Radiologist's impression: Impressions Chest X-Ray 02/01/23 20:57 IMPRESSION: Subsegmental atelectasis at the lung bases. Prominent right pulmonary hilum. Assessment and Plan (1) CHF exacerbation: Status: Acute Patient presents with symptoms which has suggestive CHF exacerbation could be related to bronchitis, viral and underlying severe aortic stenosis.. So far viral panel is negative. Continue IV diuresis. Echocardiogram should be requested today. Continue rate control with Cardizem. Currently on full oral anticoagulation with Eliquis given prior history of atrial fibrillation. Can add Aldactone 12.5 mg to regimen. Replace potassium. Strict intake and output chart needs to be pursued. Out of bed to chair. Please also use bronchodilators to improve her wheezing. If she does have significant aortic stenosis will need to consider aortic valve replacement given her decompensated congestive heart failure. She follows with Dr. Shin in [place]. Will follow with you. Time Spent With Patient Time: Total time managing care of this patient today ____ minutes. Procedures Date of Service Date of Service: 02/02/23
[2023-02-02] MEDS: dilTIAZem HCL CD 240 MG CAP.ER.DEG PO (09:47)
[2023-02-02 11:17] VITALS: BP 137/92; PULSE 91; RESP 20; TEMP 36.7; O2SAT 95
[2023-02-02] MEDS: Potassium Chloride Packet 20 MEQ PACKET 40 MEQ PO ×2 (14:06→20:22)
[2023-02-02 15:16] VITALS: BP 130/83; PULSE 76; RESP 18; TEMP 36; O2SAT 96
--- NOTE | 2023-02-02 16:39 | P.PNIM_ITS ---
Subjective Subjective Date of Service: 02/02/23 Interval History: confused this a.m. but pleasantly so. No acute issues Review of Systems unable to obtain Physical Exam Vital Signs: Vital Signs: Last Vital Signs Temp 96.8 F 02/02/23 15:16 Pulse 76 02/02/23 15:16 Resp 18 02/02/23 15:16 BP 130/83 02/02/23 15:16 Pulse Ox 96 02/02/23 15:16 O2 Del Method Room Air 02/02/23 15:16 BMI result Body Mass Index 30.2 Const: Other: awake alert confused but easily reoriented Resp: Other: clear to auscultation bilaterally no rales rhonchi or wheezes Cardio: Other: no S4; positive S1-S2; no S3; 2/6 systolic murmur best heard right sternal border 2nd intercostal space with radiation to right carotid GI: Other: soft nontender nondistended normoactive bowel sounds Neuro: Other: difficult exam secondary to confusion. Moves all extremities with equal power sensation appears to be intact Extrem: Other: no edema bilaterally Objective Data Active Medications Acetaminophen (Acetaminophen 325 Mg Tablet) 650 mg PO Q6H PRN PRN Reason: Pain, Mild (Pain Scale 1-3) Albuterol/Ipratropium (Albuterol/Iprat 2.5/0.5mg 3 Ml Ampul.Neb) 3 ml INHALE RQ4H PRN PRN Reason: Wheezing Apixaban (Apixaban 5 Mg Tablet) 5 mg PO BID [facility] Last Admin: 02/02/23 08:08 Dose: 5 mg Documented By: JOSE Atorvastatin Calcium (Atorvastatin Calcium 10 Mg Tablet) 10 mg PO DAILY [facility] Last Admin: 02/02/23 08:07 Dose: 10 mg Documented By: JOSE Diltiazem HCl (Diltiazem Hcl Cd 240 Mg Cap.Er.Deg) 240 mg PO DAILY [facility]; Protocol Last Admin: 02/02/23 09:47 Dose: 240 mg Documented By: JENNY Docusate Sodium (Docusate Sodium 100 Mg Capsule) 100 mg PO DAILY PRN PRN Reason: Constipation Docusate Sodium (Docusate Sodium 100 Mg Capsule) 100 mg PO BEDTIME [facility] Furosemide (Furosemide 40 Mg/4 Ml Vial) 40 mg IVPUSH DAILY [facility]; Protocol Last Admin: 02/02/23 08:08 Dose: 40 mg Documented By: JOSE Guaifenesin (Guaifenesin 100 Mg/5 Ml Liquid) 5 ml PO Q4H PRN PRN Reason: Cough Ceftriaxone Sodium 1 gm/ (Sodium Chloride) 50 mls @ 100 mls/hr IV Q24H [facility] Levothyroxine Sodium (Levothyroxine Sodium 100 Mcg Tablet) 100 mcg PO DAILY@0600 [facility] Last Admin: 02/02/23 07:53 Dose: 100 mcg Documented By: JOSE Lidocaine HCl (Lidocaine 4 % Cream Kit) 1 appl TOPICAL DAILY [facility] Last Admin: 02/02/23 10:33 Dose: Not Given Documented By: JENNY Non-Admin Reason: Patient Refused Meclizine HCl (Meclizine Hcl 12.5 Mg Tablet) 12.5 mg PO TID PRN PRN Reason: Dizziness Multivitamins/Vitamin C (Multivitamin Tablet) 1 tab PO DAILY [facility] Last Admin: 02/02/23 08:08 Dose: 1 tab Documented By: JOSE Ondansetron HCl (Ondansetron Hcl 4 Mg/2 Ml Vial) 4 mg IVPUSH Q8H PRN PRN Reason: Nausea and Vomiting Pharmacy Consult (Consult Rx Perform Med Rec) 1 each MISCELLANE ONCE PRN PRN Reason: Consult order Potassium Chloride (Potassium Chloride Packet 20 Meq Packet) 40 meq PO BID [facility] Last Admin: 02/02/23 14:06 Dose: 40 meq Documented By: JENNY Sodium Chloride (0.9 % Sodium Chloride Flush 3 Ml Syringe) 3 ml IVFLUSH QSHIFT [facility] Last Admin: 02/02/23 14:06 Dose: 3 ml Documented By: JENNY Spironolactone (Spironolactone 25 Mg Tablet) 12.5 mg PO DAILY [facility]; Protocol Vitamin D (Cholecalciferol (Vitamin D3) 25 Mcg Tablet) 50 mcg PO DAILY [facility] Last Admin: 02/02/23 08:07 Dose: 50 mcg Documented By: JOSE Labs 02/01/23 20:44 02/02/23 07:46 Labs: Laboratory Results - last 24 hr 02/01/23 02/01/23 02/01/23 20:44 20:44 20:44 MCV 87.5 MCH 29.2 MCHC 33.3 RDW 12.4 Plt Count 264 MPV 10.2 Immature Gran % (Auto) 0.5 H Neut % (Auto) 62.8 Lymph % (Auto) 21.8 [place] % (Auto) 12.1 H Eos % (Auto) 1.9 Baso % (Auto) 0.9 Lymph # (Auto) 2.8 [place] # (Auto) 1.6 H Eos # (Auto) 0.2 Baso # (Auto) 0.1 Abs Immat Gran (auto) 0.06 H Absolute Neuts (auto) 8.1 Absolute Nucleated RBC 0.000 Nucleated RBC % (auto) 0.0 Smear Tech's Comments VERIFIED PT 18.1 H INR 1.6 H VBG pH VBG pCO2 VBG pO2 VBG HCO3 VBG O2 Saturation VBG Base Excess Anion Gap Estim Creat Clear Calc Estimated GFR Random Glucose Lactic Acid Calcium Total Bilirubin AST ALT Alkaline Phosphatase B-Natriuretic Peptide 224 H Total Protein Albumin Urine Color Urine Appearance Urine pH Ur Specific [place] Urine Protein Urine Glucose (UA) Urine Ketones Urine Blood Urine Nitrite Ur Leukocyte Esterase Urine RBC Urine WBC Ur Squamous Epith Cells Urine Bacteria Hyaline Casts Influenza Type A (PCR) Influenza Type B (PCR) RSV RNA Qual (PCR) SARS-CoV-2 RNA (RT-PCR) 02/01/23 02/01/23 02/01/23 20:44 20:51 21:13 MCV MCH MCHC RDW Plt Count MPV Immature Gran % (Auto) Neut % (Auto) Lymph % (Auto) [place] % (Auto) Eos % (Auto) Baso % (Auto) Lymph # (Auto) [place] # (Auto) Eos # (Auto) Baso # (Auto) Abs Immat Gran (auto) Absolute Neuts (auto) Absolute Nucleated RBC Nucleated RBC % (auto) Smear Tech's Comments PT INR VBG pH 7.42 VBG pCO2 47 VBG pO2 43 VBG HCO3 31 H VBG O2 Saturation 72.0 VBG Base Excess 6.1 Anion Gap 13 Estim Creat Clear Calc 55.6 Estimated GFR > 60 Random Glucose 120 H Lactic Acid Calcium 9.1 Total Bilirubin 0.6 AST 15 ALT 12 Alkaline Phosphatase 97 B-Natriuretic Peptide Total Protein 7.4 Albumin 3.8 Urine Color Urine Appearance Urine pH Ur Specific [place] Urine Protein Urine Glucose (UA) Urine Ketones Urine Blood Urine Nitrite Ur Leukocyte Esterase Urine RBC Urine WBC Ur Squamous Epith Cells Urine Bacteria Hyaline Casts Influenza Type A (PCR) NEGATIVE Influenza Type B (PCR) NEGATIVE RSV RNA Qual (PCR) NEGATIVE SARS-CoV-2 RNA (RT-PCR) NEGATIVE 02/01/23 02/01/23 02/02/23 22:12 22:58 07:46 MCV MCH MCHC RDW Plt Count MPV Immature Gran % (Auto) Neut % (Auto) Lymph % (Auto) [place] % (Auto) Eos % (Auto) Baso % (Auto) Lymph # (Auto) [place] # (Auto) Eos # (Auto) Baso # (Auto) Abs Immat Gran (auto) Absolute Neuts (auto) Absolute Nucleated RBC Nucleated RBC % (auto) Smear Tech's Comments PT INR VBG pH VBG pCO2 VBG pO2 VBG HCO3 VBG O2 Saturation VBG Base Excess Anion Gap 10 L Estim Creat Clear Calc 57.2 Estimated GFR > 60 Random Glucose 104 Lactic Acid 1.4 Calcium 9.0 Total Bilirubin 0.8 AST 11 ALT 11 Alkaline Phosphatase 100 B-Natriuretic Peptide Total Protein 7.0 Albumin 3.7 Urine Color Yellow Urine Appearance Cloudy Urine pH 6.0 Ur Specific [place] 1.015 Urine Protein Trace Urine Glucose (UA) Negative Urine Ketones Negative Urine Blood Trace H Urine Nitrite Positive H Ur Leukocyte Esterase Large (3+) H Urine RBC 3-5 H Urine WBC >50 H Ur Squamous Epith Cells 0-2 Urine Bacteria 4+ Hyaline Casts 0-2 Influenza Type A (PCR) Influenza Type B (PCR) RSV RNA Qual (PCR) SARS-CoV-2 RNA (RT-PCR) Microbiology Microbiology Results: Microbiology 02/01/23 22:31 Urine Culture - Preliminary Urine clean catch - Urine velazquez top Gram negative mayco Assessment and Plan (1) CHF exacerbation: Status: Acute (2) Cystitis: Status: Acute (3) Afib: Status: Acute Plan This is an 82-year-old female comes into the hospital with reported dyspnea, no hypoxia noted to have several issues as below 1.Acute Systolic CHF exacerbation - continue daily Lasix as ordered - add Aldactone 12.5 mg daily --follow renals/divalents 2.Acute cystitis - preliminary culture with Gram-negative rods - ceftriaxone (2) - adjust as cultures demonstrate 3.AFib (chronic) - acceptable rate control - continue Eliquis for full anticoagulation - p.o. diltiazem adjust as indicated 4.Hypertension - stable - continue diltiazem Ana DNR DNI will require ongoing hospitalization for IV diuresis and IV antibiotics to treat urinary tract infection Time Spent With Patient Time: Total time managing care of this patient today ____ minutes. Quality Stroke Does the patient have a stroke diagnosis?: No VTE Prior VTE?: No VTE Risk Level:: Medical - low VTE Device Contraindication: Treatment Not Indicated VTE Drug Contraindication: N/A - Med Ordered
[2023-02-02 19:15] VITALS: BP 160/80; PULSE 80; RESP 20; TEMP 36.7; O2SAT 95
[2023-02-02] MEDS: Acetaminophen 325 MG TABLET 650 MG PO (20:23)
[2023-02-02] MEDS: Docusate Sodium 100 MG CAPSULE PO (20:23)
[2023-02-03] VITALS (8 sets, daily range): BP systolic 118–142; BP diastolic 78–93; PULSE 65–86; RESP 14–20; TEMP 36.1–36.6; O2SAT 95–98
[2023-02-03] MEDS: Levothyroxine Sodium 100 MCG TABLET PO (05:38)
[2023-02-03 06:28] LABS: MANUAL DIFF FLAG NO
[2023-02-03 06:32] LABS: Basophils Absolute Auto 0.1 X10*3/uL (0.0-0.2); Basophils Percent Auto 1.3 % (0-2); Eosinophils Absolute Auto 0.4 X10*3/uL (0.0-0.4); Eosinophils Percent Auto 4.4 % (0-4); Hematocrit 38.3 % (37.0-47.0); Hemoglobin 12.5 g/dl (12.0-16.0); Imm Gran Abs Auto 0.04 X10*3/uL (0.00-0.03); Imm Gran Pct Auto 0.4 % (0.0-0.4); Lymphocytes Absolute Auto 2.8 X10*3/uL (1.2-4.9); Lymphocytes Percent Auto 28.5 % (20-40); Mean Corpuscular HGB Conc 32.6 g/dl (31.0-35.0); Mean Corpuscular Hemoglobin 28.8 pg (27.0-33.0); Mean Corpuscular Volume 88.2 fL (80.0-98.0); Mean Platelet Volume 10.6 fL (9.4-12.3); Monocytes Absolute Auto 1.3 X10*3/uL (0.1-1.2); Monocytes Percent Auto 12.6 % (2-11); Neutrophils Absolute Auto 5.3 x10*3/uL (2.0-8.3); Neutrophils Percent Auto 52.8 % (45-73); Platelet Count 267 X10*3/uL (160-400); Red Blood Count 4.34 X10*6/uL (4.20-5.50); Red Cell Distribution Width 12.1 % (11.0-16.0)
[2023-02-03 07:04] LABS: Alanine Aminotransferase 10 U/L (0-31); Albumin Level 3.6 g/dL (3.5-5.0); Alkaline Phosphatase 97 U/L (39-117); Anion Gap 11 (12-20); Aspartate Amino Transferase 14 U/L (5-31); Bilirubin Total 0.7 mg/dL (0.0-1.0); Blood Urea Nitrogen 8 mg/dL (9-16); Calcium 9.3 mg/dL (8.4-10.2); Carbon Dioxide 25 mmol/L (22-29); Chloride 100 mmol/L (96-108); Creatinine Clr Calc Pharmacy 53.7; Estimated Glomerular Filt Rate > 60; Glucose Fasting 97 mg/dL (60-99); Potassium 3.7 mmol/L (3.3-5.1); Sodium 132 mmol/L (135-145); Total Protein 6.9 g/dL (6.5-8.0)
[2023-02-03] MEDS: Cholecalciferol (Vitamin D3) 25 MCG TABLET 50 MCG PO (08:27)
[2023-02-03] MEDS: Multivitamin TABLET 1 TAB PO (08:28)
[2023-02-03] MEDS: Spironolactone 25 MG TABLET 12.5 MG PO (08:28)
[2023-02-03] MEDS: dilTIAZem HCL CD 240 MG CAP.ER.DEG PO (08:28)
[2023-02-03] MEDS: Atorvastatin Calcium 10 MG TABLET PO (08:30)
[2023-02-03] MEDS: Apixaban 5 MG TABLET PO ×2 (08:30→19:31)
[2023-02-03] MEDS: 0.9 % Sodium Chloride Flush 3 ML SYRINGE IVFLUSH ×3 (08:30→19:31)
[2023-02-03] MEDS: Potassium Chloride Packet 20 MEQ PACKET 40 MEQ PO ×2 (08:30→19:30)
[2023-02-03] MEDS: Furosemide 40 MG/4 ML VIAL IVPUSH (08:30)
--- NOTE | 2023-02-03 11:02 | P.PNCA_ITS ---
Subjective Subjective Date of Service: 02/03/23 Principal diagnosis: Aortic stenosis, CHF Interval history: Patient says she is feeling better, diuresing. Negative balance of about 1300 cc. Echocardiogram shows severe aortic stenosis. Review of Systems Constitutional: Reports no additional constitutional complaints Cardiovascular: Denies chest pain, Denies leg edema, Denies lightheadedness, Denies palpitations and Reports dyspnea Respiratory: Reports no additional respiratory complaints and Reports dyspnea Endocrine: Denies palpitations Physical Exam Vital Signs: Last Vital Signs Temp 97.8 F 02/03/23 07:19 Pulse 71 02/03/23 07:19 Resp 18 02/03/23 07:19 BP 118/86 02/03/23 07:19 Pulse Ox 98 02/03/23 07:19 O2 Del Method Room Air 02/03/23 07:19 BMI result Body Mass Index 30.2 Const General: cooperative, comfortable, no acute distress, alert and awake Nutritional Appearance: overweight HEENT Head: Yes normocephalic and Yes atraumatic Neck Neck: Yes trachea midline, Yes supple and Yes no JVD Resp Effort & Inspection: normal respiratory effort Auscultation: crackles bilateral at the base Cardio Rhythm: regular rhythm Heart sounds: S1 normal heart sound present and Murmur heart sound present systolic late, decrescendo and crescendo GI Auscultation: normal bowel sounds Skin General skin exam: no rashes or lesions noted Neuro General: no focal motor deficits Extrem General: Yes no clubbing, cyanosis or edema Objective Labs and Meds 02/03/23 06:20 02/03/23 06:20 Lab results: Laboratory Results - last 24 hr 02/03/23 02/03/23 06:20 06:20 WBC 10.0 RBC 4.34 Hgb 12.5 Hct 38.3 MCV 88.2 MCH 28.8 MCHC 32.6 RDW 12.1 Plt Count 267 MPV 10.6 Immature Gran % (Auto) 0.4 Neut % (Auto) 52.8 Lymph % (Auto) 28.5 [place] % (Auto) 12.6 H Eos % (Auto) 4.4 H Baso % (Auto) 1.3 Lymph # (Auto) 2.8 [place] # (Auto) 1.3 H Eos # (Auto) 0.4 Baso # (Auto) 0.1 Abs Immat Gran (auto) 0.04 H Absolute Neuts (auto) 5.3 Absolute Nucleated RBC 0.000 Nucleated RBC % (auto) 0.0 Sodium 132 L Potassium 3.7 D Chloride 100 Carbon Dioxide 25 Anion Gap 11 L BUN 8 L Creatinine 0.68 Estim Creat Clear Calc 53.7 Estimated GFR > 60 Fasting Glucose 97 Calcium 9.3 Total Bilirubin 0.7 AST 14 ALT 10 Alkaline Phosphatase 97 Total Protein 6.9 Albumin 3.6 Progress Note: A&P Assessment and plan (1) CHF exacerbation: Status: Acute Assessment and Plan: Patient acute CHF exacerbation most likely due to underlying severe aortic stenosis and infectious etiology. However aortic stenosis is probably responsible for her significant progressive symptoms and will require discussion for aortic valve replacement. Discussed with the patient and she is now agreeable. In the past she had declined aortic valve replacement. Continue diuresis. Strict intake and output chart needs to be pursued. Continue to monitor renal function and BNP tomorrow. Will need to transition to oral diu retics if improved by tomorrow. Continue with spironolactone therapy. (2) Afib: Status: Acute Assessment and Plan: Atrial fibrillation, rate controlled. Continue full oral anticoagulation, currently on Eliquis 5 mg b.i.d.. (3) Aortic stenosis: Status: Acute Assessment and Plan: Aortic stenosis which is severe. We discussed about possibility of transcatheter aortic valve replacement. She is interested in discussing this further. Will follow-up with her own foundation relations manager as outpatient. Will follow with you Time Spent With Patient Time: Total time managing care of this patient today ____ minutes. Progress Note: Quality Stroke Does the patient have a stroke diagnosis?: No Procedures Date of Service Date of Service: 02/03/23
--- NOTE | 2023-02-03 12:49 | MHC.CM.PN ---
EMR REVIEWED, PER HOSPITALIST ANTIC PT WILL CHANGE TO ORAL LASIX AND BE CLEARED FOR D/C TOMORROW 02/03, PER P.T. PHYSICAL THERAPY NOT INDICATED AND PT WILL RETURN TO [facility] W/NO SERVICES, CM WILL CONT TO FOLLOW D/C NEEDS.
--- NOTE | 2023-02-03 15:18 | P.PNIM_ITS ---
Subjective Subjective Date of Service: 02/03/23 Interval History: Seen and evaluated Feels better already but still weak and dyspneic on little exertion Echo showed severe no other overnight events Review of Systems Review of Systems: Yes all other systems are reviewed and are negative Physical Exam Vital Signs: Vital Signs: Last Vital Signs Temp 97.4 F 02/03/23 11:16 Pulse 86 02/03/23 11:47 Resp 18 02/03/23 11:16 BP 134/88 02/03/23 11:47 Pulse Ox 96 02/03/23 11:47 O2 Del Method Room Air 02/03/23 11:16 BMI result Body Mass Index 30.2 Const: Other: Constitutional : Awake, interactive, not in distress, frail looking Neck : Normal inspection, Supple Cardiovascular : RRR, no JVP, no lower extremity edema Respiratory : good bilateral air entry, basal fine crackles, wheezes or rhonchi Gastrointestinal: soft, lax, Normal bowel sounds, Non tender Skin : Warm, Dry Neurological : Alert & oriented to self and place, No focal deficit Objective Data Active Medications Acetaminophen (Acetaminophen 325 Mg Tablet) 650 mg PO Q6H PRN PRN Reason: Pain, Mild (Pain Scale 1-3) Last Admin: 02/02/23 20:23 Dose: 650 mg Documented By: SHEILA Albuterol/Ipratropium (Albuterol/Iprat 2.5/0.5mg 3 Ml Ampul.Neb) 3 ml INHALE RQ4H PRN PRN Reason: Wheezing Apixaban (Apixaban 5 Mg Tablet) 5 mg PO BID [facility] Last Admin: 02/03/23 08:30 Dose: 5 mg Documented By: JENNY Atorvastatin Calcium (Atorvastatin Calcium 10 Mg Tablet) 10 mg PO DAILY [facility] Last Admin: 02/03/23 08:30 Dose: 10 mg Documented By: JENNY Diltiazem HCl (Diltiazem Hcl Cd 240 Mg Cap.Er.Deg) 240 mg PO DAILY [facility]; Protocol Last Admin: 02/03/23 08:28 Dose: 240 mg Documented By: JENNY Docusate Sodium (Docusate Sodium 100 Mg Capsule) 100 mg PO DAILY PRN PRN Reason: Constipation Docusate Sodium (Docusate Sodium 100 Mg Capsule) 100 mg PO BEDTIME [facility] Last Admin: 02/02/23 20:23 Dose: 100 mg Documented By: JOSE MRIVROSE Furosemide (Furosemide 40 Mg/4 Ml Vial) 40 mg IVPUSH DAILY [facility]; Protocol Last Admin: 02/03/23 08:30 Dose: 40 mg Documented By: JENNY Guaifenesin (Guaifenesin 100 Mg/5 Ml Liquid) 5 ml PO Q4H PRN PRN Reason: Cough Ceftriaxone Sodium 1 gm/ (Sodium Chloride) 50 mls @ 100 mls/hr IV Q24H [facility] Levothyroxine Sodium (Levothyroxine Sodium 100 Mcg Tablet) 100 mcg PO DAILY @0600 [facility] Last Admin: 02/03/23 05:38 Dose: 100 mcg Documented By: SALAZAR Lidocaine HCl (Lidocaine 4 % Cream Kit) 1 appl TOPICAL DAILY [facility] Last Admin: 02/03/23 08:31 Dose: Not Given Documented By: JENNY Non-Admin Reason: Patient Refused Meclizine HCl (Meclizine Hcl 12.5 Mg Tablet) 12.5 mg PO TID PRN PRN Reason: Dizziness Multivitamins/Vitamin C (Multivitamin Tablet) 1 tab PO DAILY [facility] Last Admin: 02/03/23 08:28 Dose: 1 tab Documented By: JENNY Ondansetron HCl (Ondansetron Hcl 4 Mg/2 Ml Vial) 4 mg IVPUSH Q8H PRN PRN Reason: Nausea and Vomiting Pharmacy Consult (Consult Rx Perform Med Rec) 1 each MISCELLANE ONCE PRN PRN Reason: Consult order Potassium Chloride (Potassium Chloride Packet 20 Meq Packet) 40 meq PO BID [facility] Last Admin: 02/03/23 08:30 Dose: 40 meq Documented By: JENNY Sodium Chloride (0.9 % Sodium Chloride Flush 3 Ml Syringe) 3 ml IVFLUSH QSHIFT [facility] Last Admin: 02/03/23 08:30 Dose: 3 ml Documented By: JENNY Spironolactone (Spironolactone 25 Mg Tablet) 12.5 mg PO DAILY [facility]; Protocol Last Admin: 02/03/23 08:28 Dose: 12.5 mg Documented By: JENNY Vitamin D (Cholecalciferol (Vitamin D3) 25 Mcg Tablet) 50 mcg PO DAILY [facility] Last Admin: 02/03/23 08:27 Dose: 50 mcg Documented By: JENNY Labs 02/03/23 06:20 02/03/23 06:20 Labs: Laboratory Results - last 24 hr 02/03/23 02/03/23 06:20 06:20 MCV 88.2 MCH 28.8 MCHC 32.6 RDW 12.1 Plt Count 267 MPV 10.6 Immature Gran % (Auto) 0.4 Neut % (Auto) 52.8 Lymph % (Auto) 28.5 [place] % (Auto) 12.6 H Eos % (Auto) 4.4 H Baso % (Auto) 1.3 Lymph # (Auto) 2.8 [place] # (Auto) 1.3 H Eos # (Auto) 0.4 Baso # (Auto) 0.1 Abs Immat Gran (auto) 0.04 H Absolute Neuts (auto) 5.3 Absolute Nucleated RBC 0.000 Nucleated RBC % (auto) 0.0 Anion Gap 11 L Estim Creat Clear Calc 53.7 Estimated GFR > 60 Fasting Glucose 97 Calcium 9.3 Total Bilirubin 0.7 AST 14 ALT 10 Alkaline Phosphatase 97 Total Protein 6.9 Albumin 3.6 Microbiology Microbiology Results: Microbiology 02/01/23 22:31 Urine Culture - Preliminary Urine clean catch - Urine velazquez top Gram negative mayco 02/01/23 23:06 Blood Culture - Preliminary Blood - Venous No growth after 24 hours. 02/01/23 23:06 Blood Culture - Preliminary Blood - Venous No growth after 24 hours. Assessment and Plan (1) CHF exacerbation: Status: Acute (2) Cystitis: Status: Acute Plan This is an 82-year-old female comes into the hospital with reported dyspnea, no hypoxia noted to have several issues as below # Acute Systolic CHF exacerbation continue daily Lasix as ordered add Aldactone 12.5 mg daily follow renals/divalents Cardiology input appreciated # Severe aortic stenosis Seen on Echo To be followed as outpatient w primary finance associate for surgical intervention planning # Acute cystitis preliminary culture with Gram-negative rods ceftriaxone adjust as cultures demonstrate # AFib (chronic) acceptable rate control continue Eliquis for full anticoagulation p.o. diltiazem adjust as indicated # Hypertension continue diltiazem Eliquis DNR DNI will require ongoing hospitalization for IV diuresis and IV antibiotics to treat urinary tract infection Time Spent With Patient Time: Total time managing care of this patient today ____ minutes. Quality Stroke Does the patient have a stroke diagnosis?: No VTE Prior VTE?: No VTE Risk Level:: Medical - low VTE Device Contraindication: Treatment Not Indicated VTE Drug Contraindication: N/A - Med Ordered
[2023-02-03] MEDS: Docusate Sodium 100 MG CAPSULE PO (19:31)
[2023-02-03] MEDS: cefTRIAXone sodium 1 GM in 0.9 % Sodium Chloride 50 ML IV (19:31)
[2023-02-03] MEDS: Acetaminophen 325 MG TABLET 650 MG PO (19:34)
[2023-02-03] MEDS: Albuterol/Iprat 2.5/0.5MG 3 ML AMPUL.NEB INHALE (20:38)
[2023-02-04] VITALS: BP 133/78; PULSE 76; RESP 20; TEMP 36.3; O2SAT 98
[2023-02-04 03:13] VITALS: BP 150/80; PULSE 82; RESP 20; TEMP 36.1; O2SAT 95
[2023-02-04] MEDS: Levothyroxine Sodium 100 MCG TABLET PO (06:00)
[2023-02-04 06:25] VITALS: BMI 29.9
[2023-02-04 06:33] LABS: MANUAL DIFF FLAG NO
[2023-02-04 06:37] LABS: Basophils Absolute Auto 0.1 X10*3/uL (0.0-0.2); Basophils Percent Auto 1.1 % (0-2); Eosinophils Absolute Auto 0.4 X10*3/uL (0.0-0.4); Eosinophils Percent Auto 3.6 % (0-4); Hematocrit 39.1 % (37.0-47.0); Hemoglobin 12.9 g/dl (12.0-16.0); Imm Gran Abs Auto 0.05 X10*3/uL (0.00-0.03); Imm Gran Pct Auto 0.5 % (0.0-0.4); Lymphocytes Absolute Auto 3.3 X10*3/uL (1.2-4.9); Lymphocytes Percent Auto 30.1 % (20-40); Mean Corpuscular Hemoglobin 28.7 pg (27.0-33.0); Mean Corpuscular Volume 87.1 fL (80.0-98.0); Mean Platelet Volume 10.2 fL (9.4-12.3); Monocytes Absolute Auto 1.1 X10*3/uL (0.1-1.2); Monocytes Percent Auto 9.5 % (2-11); Neutrophils Absolute Auto 6.2 x10*3/uL (2.0-8.3); Neutrophils Percent Auto 55.2 % (45-73); Platelet Count 314 X10*3/uL (160-400); Red Blood Count 4.49 X10*6/uL (4.20-5.50); White Blood Count 11.1 X10*3/uL (4.8-10.8)
[2023-02-04 06:54] LABS: Anion Gap 14 (12-20); Blood Urea Nitrogen 7 mg/dL (9-16); Calcium 9.3 mg/dL (8.4-10.2); Carbon Dioxide 24 mmol/L (22-29); Chloride 97 mmol/L (96-108); Creatinine Clr Calc Pharmacy 52.7; Estimated Glomerular Filt Rate > 60; Glucose Random 101 mg/dL (60-115); Potassium 3.9 mmol/L (3.3-5.1); Sodium 131 mmol/L (135-145)
[2023-02-04 06:57] LABS: Alanine Aminotransferase 10 U/L (0-31); Albumin Level 3.5 g/dL (3.5-5.0); Alkaline Phosphatase 92 U/L (39-117); Anion Gap 14 (12-20); Aspartate Amino Transferase 16 U/L (5-31); Bilirubin Total 0.6 mg/dL (0.0-1.0); Blood Urea Nitrogen 7 mg/dL (9-16); Calcium 9.5 mg/dL (8.4-10.2); Carbon Dioxide 24 mmol/L (22-29); Chloride 97 mmol/L (96-108); Creatinine Clr Calc Pharmacy 52.7; Estimated Glomerular Filt Rate > 60; Glucose Fasting 102 mg/dL (60-99); Potassium 3.9 mmol/L (3.3-5.1); Sodium 131 mmol/L (135-145); Total Protein 6.7 g/dL (6.5-8.0)
[2023-02-04 07:00] LABS: B Type Natriuretic Peptide 141 pg/mL (<100)
[2023-02-04 07:47] VITALS: BP 150/110; PULSE 73; RESP 15; TEMP 36.3; O2SAT 96
[2023-02-04] MEDS: Furosemide 40 MG TABLET PO (08:41)
[2023-02-04] MEDS: Multivitamin TABLET 1 TAB PO (08:42)
[2023-02-04] MEDS: Spironolactone 25 MG TABLET 12.5 MG PO (08:42)
[2023-02-04] MEDS: Potassium Chloride Packet 20 MEQ PACKET PO (08:42)
[2023-02-04] MEDS: 0.9 % Sodium Chloride Flush 3 ML SYRINGE IVFLUSH (08:43)
[2023-02-04] MEDS: dilTIAZem HCL CD 240 MG CAP.ER.DEG PO (08:43)
[2023-02-04] MEDS: Atorvastatin Calcium 10 MG TABLET PO (08:43)
[2023-02-04] MEDS: Apixaban 5 MG TABLET PO (08:43)
[2023-02-04] MEDS: Cholecalciferol (Vitamin D3) 25 MCG TABLET 50 MCG PO (08:43)
[2023-02-04] MEDS: Lidocaine 4 % Cream KIT 1 APPL TOPICAL (10:19)
[2023-02-04 10:51] VITALS: BP 136/86; PULSE 88; RESP 20; TEMP 36.3; O2SAT 99
--- NOTE | 2023-02-04 10:57 | PM.PNCARD ---
Subjective Subjective Date of Service: 02/04/23 Principal diagnosis: Aortic stenosis, CHF Interval history: Patient is feeling better. She denies any lightheadedness, syncope. Will diuresis is only been tepid but she feels better. No other constitutional symptoms. Review of Systems Review of Systems Yes all other systems are reviewed and are negative Physical Exam Vital Signs: Last Vital Signs Temp 97.3 F 02/04/23 10:51 Pulse 88 02/04/23 10:51 Resp 20 02/04/23 10:51 BP 136/86 02/04/23 10:51 Pulse Ox 99 02/04/23 10:51 O2 Del Method Room Air 02/04/23 10:51 BMI result Body Mass Index 29.9 Const General: cooperative, comfortable, no acute distress, alert and awake Nutritional Appearance: overweight HEENT Head: Yes normocephalic and Yes atraumatic Neck Neck: Yes trachea midline, Yes supple and Yes no JVD Resp Effort & Inspection: normal respiratory effort Auscultation: crackles bilateral at the base Cardio Rhythm: regular rhythm Heart sounds: S1 normal heart sound present and Murmur heart sound present systolic late, decrescendo and crescendo GI Auscultation: normal bowel sounds Skin General skin exam: no rashes or lesions noted Neuro General: no focal motor deficits Extrem General: Yes no clubbing, cyanosis or edema Objective Labs and Meds 02/04/23 06:20 02/04/23 06:19 Lab results: Laboratory Results - last 24 hr 02/04/23 02/04/23 02/04/23 06:19 06:19 06:19 WBC RBC Hgb Hct MCV MCH MCHC RDW Plt Count MPV Immature Gran % (Auto) Neut % (Auto) Lymph % (Auto) [place] % (Auto) Eos % (Auto) Baso % (Auto) Lymph # (Auto) [place] # (Auto) Eos # (Auto) Baso # (Auto) Abs Immat Gran (auto) Absolute Neuts (auto) Absolute Nucleated RBC Nucleated RBC % (auto) Sodium 131 L 131 L Potassium 3.9 3.9 Chloride 97 97 Carbon Dioxide 24 24 Anion Gap 14 14 BUN 7 L 7 L Creatinine 0.69 0.69 Estim Creat Clear Calc 52.7 52.7 Estimated GFR > 60 > 60 Random Glucose 101 Fasting Glucose 102 H Calcium 9.5 9.3 Total Bilirubin 0.6 AST 16 ALT 10 Alkaline Phosphatase 92 B-Natriuretic Peptide 141 H Total Protein 6.7 Albumin 3.5 02/04/23 06:20 WBC 11.1 H RBC 4.49 Hgb 12.9 Hct 39.1 MCV 87.1 MCH 28.7 MCHC 33.0 RDW 12.0 Plt Count 314 MPV 10.2 Immature Gran % (Auto) 0.5 H Neut % (Auto) 55.2 Lymph % (Auto) 30.1 [place] % (Auto) 9.5 Eos % (Auto) 3.6 Baso % (Auto) 1.1 Lymph # (Auto) 3.3 [place] # (Auto) 1.1 Eos # (Auto) 0.4 Baso # (Auto) 0.1 Abs Immat Gran (auto) 0.05 H Absolute Neuts (auto) 6.2 Absolute Nucleated RBC 0.000 Nucleated RBC % (auto) 0.0 Sodium Potassium Chloride Carbon Dioxide Anion Gap BUN Creatinine Estim Creat Clear Calc Estimated GFR Random Glucose Fasting Glucose Calcium Total Bilirubin AST ALT Alkaline Phosphatase B-Natriuretic Peptide Total Protein Albumin Progress Note: A&P Assessment and plan (1) CHF exacerbation: Status: Acute Assessment and Plan: Acute congestive heart failure related to cystitis and severe aortic stenosis. Clinically doing well. Switch to p.o. Lasix 40 mg and continue with spironolactone 12.5. We discussed in details about need for aortic valve replacement. Advised to follow-up with her nurse midwife/clinical instructor Dr. Shin in [place] in 7-10 days. She understands agrees. Blood pressure is well optimized at this point time. Heart failure management discussed. Daily weight monitoring avoidance of salt loading was discussed. Continue rate control for atrial fibrillation. Continue full oral anticoagulation. Will sign of the case. Thank you for allowing me to partake in her care Time Spent With Patient Time: Total time managing care of this patient today ____ minutes. Progress Note: Quality Stroke Does the patient have a stroke diagnosis?: No Procedures Date of Service Date of Service: 02/04/23
--- NOTE | 2023-02-04 12:09 | MHC.CM.PN ---
Addendum entered by Elda Kay RN 02/04/23 12:33: Cm received call back from Promise who reports she can pick pt up at 2pm, hospitalist and nsg made aware via [place]. Original Note: pt medically cleared for d/c back to ltc at [place], cm contacted kamilla Marshall and Joanna requested d/c summary and cardiology notes be faxed to [phone], Joanna aware pt will need follow-up w/her tower hoist operator in [place] Dr Shin for valve replacement, cm attempted to contact nurse Promise who said she could provide transport for pt, cm awaiting a call back.
--- NOTE | 2023-02-04 13:03 | P.DS_ITS ---
DS: Providers Provider Date of Service: 02/04/23 Date of admission: 02/01/23 23:58 Primary care physician: Kasia Luong MD Consults: 02/01/23 23:57 Consult to Cardiology Routine Consulting Provider: [facility] [place] Cardiovascular Services Reason for consultation: chf? Has provider been notified: No DS: Diagnosis Discharge Diagnosis (1) CHF exacerbation: Status: Acute (2) Aortic stenosis: Status: Acute (3) Urinary tract infection: Status: Acute DS: Summary Hospital Course Hospital Course: Admission note HPI This is an 82-year-old female past medical history of hypertension, hyperlipidemia, hypothyroidism, AFib, asthma, aortic valve stenosis, frequent falls, UTI, syncope, comes into the hospital after reported dyspnea at detention.? Patient is alert and oriented to self, but a poor historian.? According to the notes sent from detention patient has been complaining of shortness of breath, there is several patient at the facility with upper respiratory infections, there was concern the patient may have RSV, sent in for further evaluation.? Patient herself denies any shortness of breath, no chest pain, no palpitations, no orthopnea PND, she does report lower extremity edema, but unable to tell me time frame.? Denies any abdominal pain nausea or vomiting, no diarrhea constipation, has urinary incontinence, no lower extremity edema On arrival to the ED patient hemodynamically stable no significant abnormal vitals Labs are significant for WBC count of 12.8, hemoglobin 12 11.2, INR 1.6, pH of 7.42, sodium of 132, BNP of 224, troponin negative, UA positive for nitrites, leukocyte Estrace, WBC, Chest x-ray shows atelectasis and prominent right pulmonary him Patient with no hypoxia Patient started on Lasix and will be admitted for further management Hospital course # Acute Systolic CHF exacerbation. Treated with IV lasix with good response over the course of hospital stay. weaned off oxygen. evaluated by cardiology as ECHO showed EF 50-55% with severe . Changed to 40 mg lasix daily with Aldactone 12.5 mg daily. To be followed as outpatient with [facility] # Severe aortic stenosis Seen on Echo. To be followed as outpatient w primary candy forming machine operator for surgical intervention planning # Acute UTI. Urine culture grew E.Coli. Treated with Ceftriaxone. To finish a course of Ceftin as outpatient. She was able to participate with PT who recommended to go back to her facility. Continue Ceftin for urine infection Start Lasix and Spironolactone for heart failure To repeat blood work as outpatient To follow with cardiology as outpatient regarding aortic stenosis further approach Time Spent with Patient Time attestation: Total time managing care of this patient today ____ minutes. Discharge coordination time: Greater than 30 minutes Quality: Safe Use of Opioids Does Pt have an Active Cancer Diagnosis on the Problem List?: No Quality: Stroke Does the patient have a stroke diagnosis?: No Physical Exam Vital Signs: Vital Signs: Last Vital Signs Temp 97.3 F 02/04/23 10:51 Pulse 88 02/04/23 10:51 Resp 20 02/04/23 10:51 BP 136/86 02/04/23 10:51 Pulse Ox 99 02/04/23 10:51 O2 Del Method Room Air 02/04/23 10:51 BMI result Body Mass Index 29.9 Const: Other: Constitutional : Awake, interactive, not in distress, frail looking Neck : Normal inspection, Supple Cardiovascular : RRR, no JVP, no lower extremity edema Respiratory : good bilateral air entry, no crackles Gastrointestinal: soft, lax, Normal bowel sounds, Non tender Skin : Warm, Dry Neurological : Alert & oriented to self and place, No focal deficit DS: Data Data Completed and Pending Labs on day of discharge: Laboratory Results - last 24 hr 02/04/23 02/04/23 02/04/23 06:19 06:19 06:19 WBC RBC Hgb Hct MCV MCH MCHC RDW Plt Count MPV Immature Gran % (Auto) Neut % (Auto) Lymph % (Auto) [place] % (Auto) Eos % (Auto) Baso % (Auto) Lymph # (Auto) [place] # (Auto) Eos # (Auto) Baso # (Auto) Abs Immat Gran (auto) Absolute Neuts (auto) Absolute Nucleated RBC Nucleated RBC % (auto) Sodium 131 L 131 L Potassium 3.9 3.9 Chloride 97 97 Carbon Dioxide 24 24 Anion Gap 14 14 BUN 7 L 7 L Creatinine 0.69 0.69 Estim Creat Clear Calc 52.7 52.7 Estimated GFR > 60 > 60 Random Glucose 101 Fasting Glucose 102 H Calcium 9.5 9.3 Total Bilirubin 0.6 AST 16 ALT 10 Alkaline Phosphatase 92 B-Natriuretic Peptide 141 H Total Protein 6.7 Albumin 3.5 02/04/23 06:20 WBC 11.1 H RBC 4.49 Hgb 12.9 Hct 39.1 MCV 87.1 MCH 28.7 MCHC 33.0 RDW 12.0 Plt Count 314 MPV 10.2 Immature Gran % (Auto) 0.5 H Neut % (Auto) 55.2 Lymph % (Auto) 30.1 [place] % (Auto) 9.5 Eos % (Auto) 3.6 Baso % (Auto) 1.1 Lymph # (Auto) 3.3 [place] # (Auto) 1.1 Eos # (Auto) 0.4 Baso # (Auto) 0.1 Abs Immat Gran (auto) 0.05 H Absolute Neuts (auto) 6.2 Absolute Nucleated RBC 0.000 Nucleated RBC % (auto) 0.0 Sodium Potassium Chloride Carbon Dioxide Anion Gap BUN Creatinine Estim Creat Clear Calc Estimated GFR Random Glucose Fasting Glucose Calcium Total Bilirubin AST ALT Alkaline Phosphatase B-Natriuretic Peptide Total Protein Albumin Preliminary micro results at discharge 02/01/23 23:06 Blood Culture - Preliminary Blood - Venous No growth after 48 hours. 02/01/23 23:06 Blood Culture - Preliminary Blood - Venous No growth after 48 hours. Imaging Chest x-ray: Radiologist's impression: ITS Impressions Chest X-Ray 02/01/23 20:57 IMPRESSION: Subsegmental atelectasis at the lung bases. Prominent right pulmonary hilum. Discharge Plan Discharge Anticipated Discharge Date/Time: 02/04/23 12:53 Patient Disposition: Home, Self-Care Discharge Diagnosis: Heart failure exacerbation Severe aortic stenosis URine infection Referrals: [facility] [Other] - 1 Week (RESUMPTION OF LTC) Kasia Luong MD [Primary Care Provider] - 1 Week Tristan Shin MD [Physician] - 1 Day (please follow up ) Discharge Medications: New furosemide 40 mg Tablet 40 mg PO DAILY Qty: 30 0RF Protocol: Hold for SBP< HOLD for SBP < : 90 spironolactone 25 mg Tablet 12.5 mg PO DAILY Qty: 30 0RF Protocol: Hold for SBP< HOLD for SBP < : 90 cefuroxime axetil 250 mg tablet 250 mg PO BID Qty: 6 0RF Continued multivitamin Tablet 1 tab PO DAILY ipratropium-albuterol 0.5 mg-3 mg(2.5 mg base)/3 mL Solution For Nebulization 3 ml INHALATION Q4-6H PRN (Reason: Wheezing) atorvastatin 10 mg tablet 10 mg PO DAILY meclizine 12.5 mg Tablet 12.5 mg PO TID PRN (Reason: Dizziness) potassium chloride 10 mEq Tablet Extended Release 10 meq PO BID guaifenesin 100 mg/5 mL Liquid 100 mg PO Q4H PRN (Reason: Cough) levothyroxine 100 mcg tablet 100 mcg PO DAILY@0600 docusate sodium 100 mg Tablet 100 mg PO BEDTIME diltiazem HCl 240 mg tablet extended release 24 hr 240 mg PO DAILY Acidophilus Tablet,Chewable 1 tab PO BID cholecalciferol (vitamin D3) 50 mcg (2,000 unit) Tablet 50 mcg PO DAILY Eliquis 5 mg tablet 5 mg PO BID lidocaine HCl [Aspercreme (lidocaine HCl)] 4 % Cream 1 appl TOPICAL DAILY Discharge Orders: Discharge Order (Routine); Ordered 02/04/23 Ordered By: Jasen Layne Diet: Low salt diet Activity on Discharge: As tolerated Stand Alone Forms: Patient Portal Discharge page Other Ambulatory Orders: Basic Metabolic Panel (Routine) Timeframe: 1 Week Facility: [facility] - Location: Laboratory Ordered By: Jasen Layne Care Plan Goals: Read below Health Concerns: Read below Plan of Treatment: Read below Assessment: You were admitted to the hospital for treatment of heart failure. Treated with IV water pills with good response over the course of hospital stay. evaluated by candy forming machine operator who adjusted your home medications. weaned down the Oxygen to room air. Concerns about severe aortic valve stenosis that needs surgical intervention which can be followed as outpatient by dr Shin. Urine infection treated with IV antibiotics. Continue Ceftin for urine infection Start Lasix and Spironolactone for heart failure To repeat blood work as outpatient To follow with cardiology as outpatient regarding aortic stenosis further approach
--- NOTE | 2023-02-05 07:29 | P.CDIM_ITS ---
PROVIDER RESPONSE TEXT: To clarify, the appropriate diagnosis supported by the clinical indicators: Persistent atrial fibrillation: episodes of continuous AF that last more than 7 days and do not self- terminate QUERY TEXT: PHYSICIAN'S DOCUMENTATION REQUEST Date of Query: 02/04/2023 10:48 AM EDT Patient Name: Sue Jhaveri Admit Date: 02/02/2023 Dear Jasen Layne, A review of the medical record indicates additional documentation may be needed. Please review below and update the documentation accordingly. Clinical Indicators: Cardiology note: continue control with Cardizem. Currently on full oral anticoagulation with Eliquis given history of afib. Add Aldactone. Dx. Chronic atrial fibrillation If possible, please provide further specificity regarding atrial fibrillation, such as: Paroxysmal atrial fibrillation: terminates spontaneously or with intervention within 7 days of onset Persistent atrial fibrillation: episodes of continuous AF that last more than 7 days and do not self- terminate Long lasting persistent atrial fibrillation: episodes of continuous AF that last more than 12 months Permanent atrial fibrillation: when a decision has been made to accept the presence of AF and there i s no further attempt to restore or maintain sinus rhythm Other (explain)Clinically unable to determine (explain)Thank you, Enma Blanco, CCS, CDIS Use of terms such as suspected, likely, concern for, or probable (associated with a specific diagnosi s that is being evaluated, monitored, or treated as if it exists) are acceptable and can be coded in the inpatient se tting, when documented at the time of discharge. Please use your independent medical judgment in providing your response. THIS QUERY IS PART OF THE PERMANENT MEDICAL RECORD
--- NOTE | 2023-02-05 07:29 | P.CDIM_ITS ---
PROVIDER RESPONSE TEXT: To clarify, the appropriate diagnosis supported by the clinical indicators: Hypokalemia QUERY TEXT: PHYSICIAN'S DOCUMENTATION REQUEST Date of Query: 02/04/2023 08:36 AM EDT Patient Name: Sue Jhaveri Admit Date: 02/02/2023 Dear Jasen Layne, A review of the medical record indicates additional documentation may be needed. Please review below and update the documentation accordingly. Clinical Indicators: LABS: potassium 3.0 l Potassium chloride 20 meq PO DAILY Based on the above, is there a diagnosis that correlates to the lab findings: Hypokalemia Labs indicate a diagnosis of (please specify) Other please specify Other (explain)Clinically unable to determine (explain)Thank you, Enma Blanco, CCS, CDIS Use of terms such as suspected, likely, concern for, or probable (associated with a specific diagnosi s that is being evaluated, monitored, or treated as if it exists) are acceptable and can be coded in the inpatient se tting, when documented at the time of discharge. Please use your independent medical judgment in providing your response. THIS QUERY IS PART OF THE PERMANENT MEDICAL RECORD
== END 2023-02-04 14:28 | disposition home or self-care (01) | DRG 291 ==
LOC: HO.ED 22:42 → HO.EDOVER 02-02 00:03 → HO.IMC 02-02 07:08
PROVIDERS: Hospitalist; Admitting Provider Internal Medicine; Emergency Provider Student in an Organized Health Care Education/Training Program; PCP Internal Medicine; Visit Provider Student in an Organized Health Care Education/Training Program
DX: I11.0 Hypertensive heart disease with heart failure (principal); I50.21 Acute systolic (congestive) heart failure; N30.00 Acute cystitis without hematuria; I48.20 Chronic atrial fibrillation, unspecified; I48.19 Other persistent atrial fibrillation; E87.6 Hypokalemia; I35.0 Nonrheumatic aortic (valve) stenosis; E78.5 Hyperlipidemia, unspecified; E03.9 Hypothyroidism, unspecified; Z66 Do not resuscitate; Z79.01 Long term (current) use of anticoagulants; Z79.890 Hormone replacement therapy; Z79.899 Other long term (current) drug therapy
CPT/HCPCS: 0241U; 36415; 71045; 80048; 80053; 81001; 82803; 83605; 83880; 84484; 85025; 85610; 87040; 87086; 87088; 87186; 93005; 93306; 94640; 97161; 99285; J0696; J1940; Q9957

== ENCOUNTER 2023-02-01 23:58 | Outpatient (BNV) | payer MEDICARE, MEDICAID, SELFPAY | END 2023-02-02 07:00 | PROVIDERS: Admitting Provider Internal Medicine; Emergency Provider Student in an Organized Health Care Education/Training Program; PCP Internal Medicine; Visit Provider Internal Medicine Cardiovascular Disease | DX: I35.0 Nonrheumatic aortic (valve) stenosis (principal) | CPT/HCPCS: 93306 ==

== ENCOUNTER → 2023-02-01 23:58 | Outpatient (BNV) | payer MEDICARE, MEDICAID, SELFPAY | PROVIDERS: Admitting Provider Internal Medicine; Emergency Provider Student in an Organized Health Care Education/Training Program; PCP Internal Medicine; Visit Provider Internal Medicine | DX: I50.9 Heart failure, unspecified (principal); I35.0 Nonrheumatic aortic (valve) stenosis; N39.0 Urinary tract infection, site not specified | CPT/HCPCS: 99223; 99232; 99233; 99239 ==

== ENCOUNTER → 2023-02-01 23:58 | Outpatient (BNV) | payer MEDICARE, MEDICAID, SELFPAY | PROVIDERS: Admitting Provider Internal Medicine; Emergency Provider Student in an Organized Health Care Education/Training Program; PCP Internal Medicine; Visit Provider Internal Medicine Cardiovascular Disease | DX: I50.9 Heart failure, unspecified (principal) | CPT/HCPCS: 93010; 99222; 99232; 99233 ==